=== PATIENT | female | born 1940 | race Caucasian/White ===

== ENCOUNTER 2016-09-16 21:04 | Inpatient (IN) | payer MEDICARE, OTHER ==
[~2016-09-16] VITALS: Ht 167.6 cm; Wt 49.3 kg
[~2016-09-16 21:04] MED LIST: CALAN SR240 MG PO; COLACE100 MG PO; DITROPAN X10 MG/BOTT PO; FERROUS SULFAT325 MG PO; FLORANEX / LACT1 TAB PO; LOVENOX30 MG/0.3 SQ; NIFEREX-150 F1 UDCAP PO; NORCO 5/325 TAB1 TA1 PO; RESTORIL15 MG PO; SALINE FLUSH10 ML IV; VERAPAMIL 240 MG; VITAMIN B-121000 MC3 PO
[2016-09-16 23:19] LABS: BASOPHILS 0.2 % (0.0-2.0); EOSINOPHILS 0.3 % (0-7); HEMOGLOBIN 10.6 g/dL (12-16); IMMATURE GRANULOCYTES 0.1 % (0-5); LYMPHOCYTES 10.7 % (15-50); MCH 31.2 pg (26.0-34.0); MCHC 33.1 g/dL (31.0-37.0); MCV 94.1 fL (80.0-100.0); MEAN PLATELET VOLUME 9.7 fL (7.4-10.4); MONOCYTES 12.3 % (2-11); NEUTROPHILS 76.4 % (40-80); WBC 9.6 10x3/uL (4.8-10.8)
[2016-09-16 23:23] LABS: PLATELET COUNT 221 10x3/uL (130-400)
[2016-09-16 23:27] LABS: APTT 21.5 SECONDS (22.8-39.4); INR 1.12 (0.85-1.17); PROTIME 14.3 SECONDS (11.6-15.0)
[2016-09-16 23:30] LABS: ALBUMIN 3.3 g/dL (3.4-5.0); ANION GAP 6.8 mmol/L (8-16); BILIRUBIN - TOTAL 0.4 mg/dL (0.2-1.3); CARBON DIOXIDE 36.4 mmol/L (21.0-32.0); CREATININE - SERUM 2.4 mg/dL (0.6-1.3); POTASSIUM - SERUM 3.2 mmol/L (3.5-5.1); PROTEIN - SERUM 7.4 g/dL (6.4-8.2)
[2016-09-16 23:33] LABS: CALCIUM 16.3 mg/dL (8.5-10.1)
[2016-09-17 04:00] VITALS: BP 165/70
[2016-09-17 04:23] VITALS: BP 165/70; BMI 17.8
--- NOTE | 2016-09-17 05:02 | NUR ---
PT RECEIVED VIA STRETCHER AWAKE, ALERT, ORIENTED @ 0310 A.M. BY CRESTERBRANDI TIAN. PT WAS TRANSFERRED FROM STRETCHER TO BED WITHOUT ANY DIFFICULTY. PT NEEDED TO VOID, THEREFORE TAN GARCÍA AND MYSELF ASSISTED PT TO TOILET WITH MODERATE ASSISTANCE. PT STATES SHE USES A CANE AT HOME. PT DENIES ANY NEEDS AT THIS TIME, MILD DISCOMFORT WITH AMBULATION. PT DENIES ANY ACUTE DIZZINESS OR NEAR SYNCOPAL S/S AT THIS TIME. PT WAS PLACED BACK INTO BED WITH ASSIST X 2, WHERE SHE HAS REMAINED. PT IS RESTING COMFORTABLY AT THIS TIME, RESPIRATIONS EVEN AND UNLABORED. CONTINUE TO MONITOR CLOSELY. CALL LIGHT WAS GIVEN TO PT WITH DEMONSTRATION AND DISCUSSION ON HOW AND WHEN TO USE IT. PT AGREED THAT SHE WOULD ALWAYS CALL BEFORE TRYING TO AMBULATE AND ALSO WHEN SHE NEEDED ANYTHING.
--- NOTE | 2016-09-17 05:50 | NUR ---
PT AWAKE, ALERT, ORIENTED, TALKING ON HER CELL PHONE AT THIS TIME. PT DENIES ANY NEEDS. CONTINUE TO MONITOR CLOSELY.
[2016-09-17 06:38] LABS: PHOSPHOROUS 5.7 mg/dL (2.5-4.9)
[2016-09-17 06:40] LABS: MAGNESIUM - SERUM 3.8 mg/dL (1.8-2.4)
--- NOTE | 2016-09-17 08:33 | NUR ---
PT IS ALERT. ASSESSMENT DONE PER FLOWSHEET. NO CO PAIN AT THIS TIME. WILL CONTINUE TO MONITOR.
[2016-09-17 08:34] VITALS: BP 138/66
[2016-09-17 11:00] VITALS: BP 150/61
[2016-09-17 11:02] VITALS: Ht 167.6 cm; Wt 49.3 kg
--- NOTE | 2016-09-17 13:24 | NUR ---
NO SS OF DISTRESS AT THIS TIME. WILL CONTINUE TO MONITOR.
[2016-09-17 16:39] VITALS: BP 175/74
--- NOTE | 2016-09-17 16:40 | NUR ---
PT IS WEARING SCD'S AT THIS TIME AND VERBALIZES UNDERSTANDING THE IMPORTANCE OF WEARING THEM
--- NOTE | 2016-09-17 19:35 | NUR ---
PT. IN BED WITH HOB UP FOR COMFORT WITH EYES CLOSED AND RESP. EVEN. PT. AWAKENS EASY FOR ASSESSMENT. ASSESSMENT COMPLETED. I.V. INFUSING VIA LT. A.C. AT 125/HR VIA PUMP WITHOUT ANY PROBLEMS. O2 ON AT 2L/MIN WITHOUT ANY DISTRESS. CALL LIGHT WITHIN REACH FOR ANY NEEDS.
[2016-09-17 20:00] VITALS: BP 174/68
--- NOTE | 2016-09-17 23:55 | NUR ---
PT. IN BED WITH HOB UP FOR COMFORT WITH EYES CLOSED AND RESP. EVEN. IV INFUSING VIA PUMP WITHOUT ANY ALARMS. CALL LIGHT WITHIN REACH.
[2016-09-18] VITALS: BP 187/80
[2016-09-18 04:00] VITALS: BP 182/72
--- NOTE | 2016-09-18 04:04 | NUR ---
PT. IN BED WITH HOB UP FOR COMFORT LYING ON HER BACK WITH EYES CLOSED AND RESP. EVEN. CALL LIGHT WITHIN REACH.
[2016-09-18 06:10] LABS: BASOPHILS 0.2 % (0.0-2.0); EOSINOPHILS 2.9 % (0-7); HEMATOCRIT 29.6 % (36.0-48.0); HEMOGLOBIN 9.7 g/dL (12-16); IMMATURE GRANULOCYTES 0.2 % (0-5); LYMPHOCYTES 13.6 % (15-50); MCH 31.4 pg (26.0-34.0); MCHC 32.8 g/dL (31.0-37.0); MCV 95.8 fL (80.0-100.0); MEAN PLATELET VOLUME 10.3 fL (7.4-10.4); MONOCYTES 8.8 % (2-11); NEUTROPHILS 74.3 % (40-80); PLATELET COUNT 233 10x3/uL (130-400); RBC 3.09 10x6/uL (4.00-5.40); RDW 12.1 % (11.5-14.5); WBC 10.2 10x3/uL (4.8-10.8)
[2016-09-18 06:32] LABS: CARBON DIOXIDE 33.1 mmol/L (21.0-32.0); CREATININE - SERUM 2.3 mg/dL (0.6-1.3)
[2016-09-18 07:21] LABS: CALCIUM 13.9 mg/dL (8.5-10.1); POTASSIUM - SERUM 4.1 mmol/L (3.5-5.1)
[2016-09-18 08:31] VITALS: BP 182/92
--- NOTE | 2016-09-18 10:34 | NUR ---
UPSET AND WANTING TO LEAVE. HAS DRESSED HERSELF, PULLED HER IV OUT, PULLED TELEMETRY OFF AND CALLER HER FRIEND. BRANDI UP SPOKE WITH PT AND SHE HAS SETTELED DOWN SOME AND IS NO LONGER CONSTANTLY TURNER MACHINE LIGHT INSISTING SHE GO HOME.
[2016-09-18 12:10] VITALS: BP 181/85
--- NOTE | 2016-09-18 12:36 | NUR ---
SITTING QUIETLY IN BED EATING LUNCH. AND CAROL NOTIFIED OF PT REQUEST TO TALK TO HER.
--- NOTE | 2016-09-18 15:26 | NUR ---
Patient Name: MERVIN DUBON Admission Status: ER Accout number: [id number] Admission Date: 09-17-2016 : 1940 Admission Diagnosis:HYPERCALCEMIA Attending: UBALDO Current LOS: 1 Anticipated DC Date: Planned Disposition: Home with Home Health Primary Insurance: MEDICARE A & B PLANNED EXTERNAL PROVIDER: [facility] Discharge Planning Comments: * Is the patient Alert and Oriented? Yes 0 * How many steps to enter\\exit or inside your home? 2 0 * PCP DR. BERGERON 0 * Pharmacy [facility] 0 * Preadmission Environment Home Alone 0 * ADLs Independent 0 * Equipment Cane Other Walker 0 * Other Equipment WALK IN [facility]UB [facility] - MEDICAL EQUIPMENT PROVIDER 0 * List name and contact numbers for known caregivers / representatives who currently or will assist patient after discharge: LALITO KAPOOR, FRIEND, 0 * Community resources currently utilized None 0 * Please name any agencies selected above. NONE 0 * Additional services required to return to the preadmission environment? No 0 * Can the patient safely return to the preadmission environment? Yes 0 * Has this patient been hospitalized within the prior 30 days at any hospital? No 0 CM MET WITH PT IN ROOM TO DISCUSS DISCHARGE PLANNING AND NEEDS. PT REPORTS LIVING AT HOME INDEPENDENTLY AND ALONE, HER SPOUSE RECENTLY WENT TO THE [facility]". PT HAS WALKER AND A CANE, [employer] IS HER MEDICAL EQUIPMENT PROVIDER. PT HAS NO OUTSIDE SERVICES ASSISTING IN THE HOME. CM DISCUSSED AVAILABILITY OF HOME HEALTH, REHAB SERVICES AND MEDICAL EQUIPMENT. PT REPORTS THE DOCTOR IS GOING TO SET UP HOME HEALTH FOR HER AND IF SO, SHE WANTS [facility]. CM OFFERED CHOICE LETTER, PT REFUSED TO SIGN AND STATES SHE WILL TAKE CARE OF THIS LATER WHEN THE DOCTOR DETERMINES WHAT SHE NEEDS. PT REPORTS HER FRIEND WILL PICK HER UP FOR DISCHARGE HOME. PT WANTS HOME HEALTH WITH [facility], DID NOT WANT TO SIGN CHOICE LETTER UNTIL THE DOCTOR DETERMINES WHAT SHE NEEDS. CM WILL ARRANGE HOME HEALTH IF NEEDED AND WITH DOCTORS ORDER. Corporate Travel Consultant: Kareem Aguiar
[2016-09-18 16:00] VITALS: BP 179/84
--- NOTE | 2016-09-18 18:37 | NUR ---
RESTING COMFORTABLE IN BED WATCHING TV.
[2016-09-18 20:49] VITALS: BP 194/79
--- NOTE | 2016-09-18 21:10 | NUR ---
PT ASSESSMENT COMPLETED NO DISTRESS OBSERVED AT THIS TIME BED LOW AND LOCKED RESPERATIONS EVEN AND UNLABORED ON ROOM AIR WILL LEIGH ANN
[2016-09-19] VITALS (17 sets, daily range): BP systolic 140–241; BP diastolic 71–121
--- NOTE | 2016-09-19 00:52 | NUR ---
PT FOUND ON FLOOR SITTING UP WITH WALKER TO SIDE PT ASSISTED TO BED AND ASSESSED NO INJURY OBSERVED PT SETTLED IN BED AND CALL LIGHT IN REACH SRX2. PT RETIREMENT ADMINISTRATOR LIGHT AND ANSWERED AND PT C/O HIP BEING DISLOCATED DR CALDERON IN ER CALLED AND XRAY ORDERED AND PT INFORMED PT MADE COMFTERABLE AND [facility] NOTIFIED. REVIEWED MAR AND NO PAIN MEDS ORDERED. WATING FOR RESULTS OF XRAY
--- NOTE | 2016-09-19 01:53 | NUR ---
XRAY RESULTS BACK AND FINDINGS SHOW LEFT HIP DISLOCATION DR CALDERON ORDER FOR ORTHO
--- NOTE | 2016-09-19 02:50 | NUR ---
PT C/O PAIN NO PAIN MEDS ORDERED DR CALDERON CALLED AND RECIVED ORDER FOR MORPHINE 2MG IVP Q2HP FOR PAIN ADMIN TO PT ORDERED AND WILL MONITOR
--- NOTE | 2016-09-19 03:54 | NUR ---
PT LAYING IN BED EYES CLOSED PT APPERS TO BE SLEEPING WILL MONITOR
--- NOTE | 2016-09-19 04:52 | NUR ---
PT LAYING IN BED PAIN MEDS ADMIN ORDERED PT CALLING OUT FOR QUYNH RESPERATIONS EVEN AND UNLABORED CALL LIGHT IN REACH SRX2 BED LOW AND LOCKED WILL MONITOR
[2016-09-19 07:41] LABS: BASOPHILS 0.1 % (0.0-2.0); EOSINOPHILS 2.6 % (0-7); HEMATOCRIT 24.8 % (36.0-48.0); HEMOGLOBIN 8.1 g/dL (12-16); IMMATURE GRANULOCYTES 0.2 % (0-5); LYMPHOCYTES 19.8 % (15-50); MCH 31.2 pg (26.0-34.0); MCHC 32.7 g/dL (31.0-37.0); MCV 95.4 fL (80.0-100.0); MONOCYTES 10.3 % (2-11); PLATELET COUNT 197 10x3/uL (130-400); WBC 9.2 10x3/uL (4.8-10.8)
--- NOTE | 2016-09-19 08:00 | NUR ---
PATIENT LYING IN BED RESTING. ALERT/ORIENT X4. CALL LIGHT WITHIN REACH.
[2016-09-19 08:15] LABS: ANION GAP 9.1 mmol/L (8-16); CARBON DIOXIDE 30.9 mmol/L (21.0-32.0); CREATININE - SERUM 2.2 mg/dL (0.6-1.3)
--- NOTE | 2016-09-19 09:49 | NUR ---
IV PATENT. CALL LIGHT IN REACH. WILL CONT. PLAN OF CARE.
--- NOTE | 2016-09-19 09:54 | NUR ---
DR. WITT INTO SEE PATIENT. NEW ORDERS FOR TWO UNITS OF PRBC. CONSULT IN FOR DR. NAPIER/EDGARDO DUE TO FALL AND C/O OF HIP PAIN
--- NOTE | 2016-09-19 10:00 | NUR ---
PATIENT SIGNED CONSENT FORM FOR TWO UNITS OF PRBC. FIST UNIT STARTED.
--- NOTE | 2016-09-19 11:00 | NUR ---
DR. NAPIER INTO SEE PATIENT. NEW ORDER RECEIVED FOR RIGHT TOTAL HIP REVISION ON WEDNESDAY. NEW ORDERS TO INSERT A LOPES CATH. NEW PAIN MEDICATION ORDERS
--- NOTE | 2016-09-19 11:27 | NUR ---
PRN PAIN MEDICATION GIVEN FOR LEFT HIP PAIN.
--- NOTE | 2016-09-19 13:00 | NUR ---
SECOND UNIT OF BLOOD STARTED. NO ADVERVSE REACTION FROM FIRST UNIT
--- NOTE | 2016-09-19 13:50 | NUR ---
LOPES CATH INSERTED. 16FR WITHOUT DIFFICULTY
--- NOTE | 2016-09-19 15:45 | NUR ---
SECOND UNIT OF PRBC GIVEN. TOLERATED WELL. PRN HYDRALAZINE GIVEN FOR B/P .
--- NOTE | 2016-09-19 17:43 | NUR ---
MIACALCIN NOT GIVEN DUE TO NOT AVAL FROM PHARMACY
--- NOTE | 2016-09-19 19:41 | NUR ---
PT IS LYING IN BED, SCREAMING HYSTERICALLY, DEMANDING TO BE DISCHARGED. PT STATES SHE JUST EITHER WANTS SURGERY RIGHT NOW OR SHE WANTS TO GO HOME. PT IS INCONSOLABLE AT THIS TIME. VISITORS HAVE ARRIVED, AND SHE IS STILL REQUESTING TO GO HOME. PT STATES SHE IS IN A GREAT DEAL OF PAIN, AND I HAVE ASSURED PT THAT I WILL BE DILIGENT IN ADMINISTERING HER PAIN MEDICATION AND NOT LET IT GET OUT OF CONTROL, ONCE I GET IT BACK IN CONTROL. WILL CONTINUE TO MONITOR CLOSELY. BED LOW, CALL LIGHT IN REACH, SIDE RAILS X 2, PTS HOB IS 20 DEGREES.
--- NOTE | 2016-09-19 23:35 | NUR ---
I SPOKE WITH DR. HARDING FROM OUR EMERGENCY DEPARTMENT [facility] @ 8372 R/T PTS BEHAVIOR IN WHICH SHE WAS CONSTANTLY YELLING/SCREAMING TO BE LET OUT SO SHE COULD GO HOME. I RECEIVED A VERBAL ORDER VIA TELEPHONE FROM DR. HARDING FOR ATIVAN 0.5MG IV ONE TIME DOSE, INCREASE HER PO NORCO 5/325MG FROM 1 PO Q 4 HOURS PRN TO 1-2 PO Q 4 HOURS PRN, OR TO GIVE HER PRN MORPHINE TO TRY AND GET PTS PAIN BACK UNDER CONTROL. I HAVE NOT HAD TO ADMINISTER THE PRN ATIVAN YET, PT DID CALM DOWN AN HOUR AFTER GIVING HER THE PO NORCO 5 X 1. PT ALSO DID HAVE VISITORS FROM [facility] IN THERE AT THAT TIME, WHICH DID HELP. I DID ADMINISTER THE PRN MORPHINE APPROX 2 HOURS AFTER THE PO NORCO, SHE WAS BECOMING INCONSOLABLE AND EXTREMELY RESTLESS. PT HAS BEEN RESTING COMFORTABLY, RESPIRATIONS EVEN AND UNLABORED, PT IS ROUSABLE TO VERBAL STIMULI. CONTINUE TO MONITOR CLOSELY. BED LOW, CALL LIGHT IN REACH, SIDE RAILS X 2, HOB 30 DEGREES.
[2016-09-20 00:23] VITALS: BP 152/76
--- NOTE | 2016-09-20 01:03 | NUR ---
CHANGED OUT IV BAG, PT RESTING COMFORTABLY AT THIS TIME, EASILY ROUSABLE TO VERBAL STIMULI, DENIES ANY NEEDS. CONTINUE TO MONITOR CLOSELY.
--- NOTE | 2016-09-20 01:54 | NUR ---
PT AWAKE, ALERT, STILL WANTING TO GET UP OUT OF BED, STILL WANTING TO GO HOME. HAVE HAD TO REMIND PT THAT SHE IS UNABLE TO WALK AT THIS TIME R/T HER LEFT HIP, AND THAT SHE NEEDS REST AT THIS TIME. PT IS MORE CONSOLABLE AT THIS TIME, AND DENIES ANY GREAT PAIN. CONTINUE TO MONITOR CLOSELY.
--- NOTE | 2016-09-20 04:07 | NUR ---
PT LYING IN BED, EYES CLOSED, RESPIRATIONS EVEN AND UNLABORED. PT IS EASILY ROUSABLE TO VERBAL STIMULI. PT APPEARS TO BE COMFORTABLE AT THIS TIME. CONTINUE TO MONITOR CLOSELY. BED LOW, CALL LIGHT IN REACH, SIDE RAILS X 2, HOB 25 DEGREES, BED ALARM ON.
[2016-09-20 04:20] VITALS: BP 157/87
[2016-09-20 05:06] LABS: BASOPHILS 0.2 % (0.0-2.0); EOSINOPHILS 3.5 % (0-7); IMMATURE GRANULOCYTES 0.3 % (0-5); LYMPHOCYTES 11.2 % (15-50); MCH 31.1 pg (26.0-34.0); MCHC 33.6 g/dL (31.0-37.0); NEUTROPHILS 74.8 % (40-80); PLATELET COUNT 210 10x3/uL (130-400); RDW 13.8 % (11.5-14.5); WBC 10.5 10x3/uL (4.8-10.8)
[2016-09-20 05:16] LABS: HEMATOCRIT 35.7 % (36.0-48.0); MCV 92.5 fL (80.0-100.0); RBC 3.86 10x6/uL (4.00-5.40)
--- NOTE | 2016-09-20 05:26 | NUR ---
PT DEMONSTRATED DIFFICULTY SWALLOWING WHOLE PILLS THIS SHIFT, SO I CRUSHED HER PRN NORCO AND PROTONIX AND GAVE WITH APPLESAUCE. PT DID EAT THE WHOLE CONTAINER OF APPLE SAUCE WITHOUT ANY DIFFICULTY. PT ALSO SHARED WITH ME THAT SHE IS AFRAID OF DYING, WHICH IS CONTRIBUTING TO HER INCREASED ANXIETY. PT ALSO STATED SHE IS AFRAID OF LOSING HER INDEPENDENCE AND WILL NOT BE ABLE TO GO HOME AFTER THIS. I ASSURED HER THAT WE WOULD DO ALL THAT IS NECCESSARY TO ENSURE HER INDEPENDENCE. CONTINUE TO MONITOR CLOSELY.
[2016-09-20 05:53] LABS: ANION GAP 12.2 mmol/L (8-16); CALCIUM 10.6 mg/dL (8.5-10.1); CARBON DIOXIDE 29.5 mmol/L (21.0-32.0); CREATININE - SERUM 1.9 mg/dL (0.6-1.3); POTASSIUM - SERUM 3.7 mmol/L (3.5-5.1)
[2016-09-20 08:00] VITALS: BP 179/87
[2016-09-20 12:00] VITALS: BP 148/69
[2016-09-20 16:00] VITALS: BP 172/74
--- NOTE | 2016-09-20 16:53 | NUR ---
CONSENTS FOR HIP REPLACEMENT SIGNED ON CHART. RESTING COMFORTABLY IN BED. CONTINUE PAIN MANAGEMENT. SINUS RHTYHM 94bpm ON TELEMETRY. REFUSE SCDs. LOPES DRAINING BY GRAVITY FREE FROM KINKS. CONTINUE PLAN OF CARE. DENIES SOB. BED LOCKED AND LOW. CALL LIGHT IN REACH. TWO SIDERAILS UP. BED ALARM ON.
--- NOTE | 2016-09-20 19:32 | NUR ---
PT LYING IN BED, AWAKE, ALERT, ORIENTED, DENIES ANY NEEDS. PT IS CALM, SMILING, DENIES ANY PAIN AT THIS TIME, AND HAS RESTED WELL TODAY PER DAY SHIFT NURSE. CONTINUE TO MONITOR CLOSELY. BED LOW, CALL LIGHT IN REACH, SIDE RAILS X 2, HOB 30 DEGREES, BED ALARM ON. SHE HAS PENTECOSTALISM VISITORS AT BEDSIDE AT THIS TIME.
[2016-09-20 20:00] VITALS: BP 174/81
--- NOTE | 2016-09-20 20:26 | NUR ---
PTS B/P AT THIS TIME IS 174/81. WILL ADMINISTER HER PRN HYDRALAZINE 10MG IVP. PT IS ALSO REQUESTING SOMETHING TO HELP HER SLEEP, WANTING HER MORPHINE. WILL CONTINUE TO MONITOR CLOSELY. PT DID NOT AND REFUSED TO EAT HER DINNER TRAY, DENIES ANY HUNGER OR WANTING ANYTHING TO EAT AT THIS TIME. WILL ENCOURAGE APPLESAUCE, PUDDING, ETC... TO HELP HER WITH CALORIC INTAKE.
--- NOTE | 2016-09-20 23:06 | NUR ---
PT RESTING COMFORTABLY, EYES CLOSED, RESPIRATIONS EVEN AND UNLABORED. PT IS ROUSABLE TO VERBAL STIMULI. CONTINUE TO MONITOR CLOSELY. WILL AGAIN TRY TO HAVE PT EAT SOMETHING SMALL BEFORE GOING NPO AT MIDNIGHT.
[2016-09-21] VITALS (7 sets, daily range): BP systolic 129–152; BP diastolic 70–77
--- NOTE | 2016-09-21 02:45 | NUR ---
PT LYING IN BED ON BACK, EYES CLOSED, RESPIRATIONS EVEN AND UNLABORED. PT IS EASILY ROUSABLE TO VERBAL STIMULI. CONTINUE TO MONITOR CLOSELY.
--- NOTE | 2016-09-21 04:52 | NUR ---
PT AWAKE, ALERT, ORIENTED, REQUESTING SWAB STICKS FOR DRY MOUTH AND PRN PAIN MEDICATION. LEMON GLYCERIN SWAB STICKS GIVEN, AND I DID SWAB PTS MOUTH SEVERAL TIMES. PRN MORPHINE GIVEN, PT IS ANXIOUS ABOUT UPCOMING SURGERY. HAVE REASSURED HER THAT THE PHYSICIANS WILL KEEP HER SAFE. CONTINUE TO MONITOR CLOSELY.
[2016-09-21 05:36] LABS: BASOPHILS 0.2 % (0.0-2.0); EOSINOPHILS 1.7 % (0-7); HEMATOCRIT 35.7 % (36.0-48.0); HEMOGLOBIN 11.7 g/dL (12-16); IMMATURE GRANULOCYTES 0.2 % (0-5); LYMPHOCYTES 9.5 % (15-50); MCH 30.5 pg (26.0-34.0); MCHC 32.8 g/dL (31.0-37.0); MCV 93.2 fL (80.0-100.0); MONOCYTES 11.1 % (2-11); NEUTROPHILS 77.3 % (40-80); PLATELET COUNT 229 10x3/uL (130-400); RBC 3.83 10x6/uL (4.00-5.40); RDW 13.5 % (11.5-14.5); WBC 12.7 10x3/uL (4.8-10.8)
[2016-09-21 05:50] LABS: CALCIUM 9.4 mg/dL (8.5-10.1); CARBON DIOXIDE 31.7 mmol/L (21.0-32.0); CREATININE - SERUM 1.7 mg/dL (0.6-1.3); POTASSIUM - SERUM 3.7 mmol/L (3.5-5.1)
--- NOTE | 2016-09-21 18:32 | NUR ---
ALERT AND ORIENTED X4. FAMILY AT BEDSIDE. PRE-OP COMPLETE. TRANSPORT TO OR VIA BED.
--- NOTE | 2016-09-21 20:55 | NUR ---
RECEIVED PATIENT TO ROOM. RESTING IN BED WITH EYES CLOSED. AROUSES TO VOICE. NO SIGNS OF DISTRESS NOTED. VSS. ORIENTED TO ROOM AND USE OF CALL LIGHT.
[2016-09-22 06:57] LABS: BASOPHILS 0.1 % (0.0-2.0); EOSINOPHILS 0 % (0-7); HEMATOCRIT 28.9 % (36.0-48.0); HEMOGLOBIN 9.5 g/dL (12-16); IMMATURE GRANULOCYTES 0.2 % (0-5); LYMPHOCYTES 7.5 % (15-50); MCH 30.7 pg (26.0-34.0); MCHC 32.9 g/dL (31.0-37.0); MCV 93.5 fL (80.0-100.0); MEAN PLATELET VOLUME 9.7 fL (7.4-10.4); MONOCYTES 7.1 % (2-11); NEUTROPHILS 85.1 % (40-80); RBC 3.09 10x6/uL (4.00-5.40); RDW 12.9 % (11.5-14.5); WBC 10.8 10x3/uL (4.8-10.8)
[2016-09-22 07:02] LABS: PLATELET COUNT 169 10x3/uL (130-400)
[2016-09-22 07:18] LABS: ANION GAP 11.5 mmol/L (8-16); CARBON DIOXIDE 26.9 mmol/L (21.0-32.0); CREATININE - SERUM 1.5 mg/dL (0.6-1.3); POTASSIUM - SERUM 3.4 mmol/L (3.5-5.1)
[2016-09-22 08:09] VITALS: BP 135/68
--- NOTE | 2016-09-22 08:21 | NUR ---
AWAKE AND ALERT. ORIENTED X3. NO C/O AT THIS TIME. SITTING UP IN BED EATING BREAKFAST. LUNGS ARE CLEAR BILATERALLY, NO COUGH NOTED. SKIN IS INTACT WITHOUT REDNESS EXCEPT INSCION TO LEFT HIP WHICH HAS A DRY INTACT DRESSING IN PLACE. IV TO RIGHT FOREARM IS PATENT WITHOUT REDNESS AT INSERTION SITE. LOPES PATENT WITH CLEAR YELLOW URINE. DENIES NEEDS AT THIS TIME.
--- NOTE | 2016-09-22 09:30 | NUR ---
UP TO CHIAR AT BEDSIDE PER PT.
--- NOTE | 2016-09-22 10:00 | NUR ---
ASSISTED BACK TO BED PER PT.
--- NOTE | 2016-09-22 11:04 | NUR ---
FAMILY AT BEDSIDE. INSTRUCTED IN USE OF IS WITH RETURN DEMONSTRATION.
[2016-09-22 11:44] VITALS: BP 140/61
--- NOTE | 2016-09-22 14:11 | NUR ---
Rehab Note- Rehab Prescreen Eval order received. The patient has had a BERRY, awaiting abduction brace from Jack. Will plan for IRF when patient is ready for discharge. Will follow patient at this time. Thank you for this referral! Marissa Lawrence RN Clinical Liaison, [facility]
[2016-09-22 15:55] VITALS: BP 139/67
--- NOTE | 2016-09-22 19:45 | NUR ---
PATIENT IN SEMI-FOWLERS POSTION. PATIENT DENIES NEEDS AT THIS TIME. PATIENT'S BED IS IN THE LOWEST POSTION AND CALL LIGHT WITHIN REACH.
[2016-09-22 21:14] VITALS: BP 147/67
[2016-09-23 04:00] VITALS: BP 133/57
[2016-09-23 05:27] LABS: BASOPHILS 0.1 % (0.0-2.0); EOSINOPHILS 0.7 % (0-7); HEMATOCRIT 25.2 % (36.0-48.0); HEMOGLOBIN 8.5 g/dL (12-16); IMMATURE GRANULOCYTES 0.1 % (0-5); LYMPHOCYTES 13.4 % (15-50); MCH 30.8 pg (26.0-34.0); MCHC 33.7 g/dL (31.0-37.0); MEAN PLATELET VOLUME 9.4 fL (7.4-10.4); MONOCYTES 12.5 % (2-11); NEUTROPHILS 73.2 % (40-80); PLATELET COUNT 177 10x3/uL (130-400); RBC 2.76 10x6/uL (4.00-5.40); RDW 12.5 % (11.5-14.5); WBC 9.8 10x3/uL (4.8-10.8)
[2016-09-23 05:42] LABS: MCV 91.3 fL (80.0-100.0)
[2016-09-23 05:49] LABS: ALBUMIN 2.4 g/dL (3.4-5.0); ANION GAP 11.5 mmol/L (8-16); BILIRUBIN - TOTAL 0.3 mg/dL (0.2-1.3); CALCIUM 7.7 mg/dL (8.5-10.1); CARBON DIOXIDE 27.4 mmol/L (21.0-32.0); CREATININE - SERUM 1.4 mg/dL (0.6-1.3); PROTEIN - SERUM 5.3 g/dL (6.4-8.2)
[2016-09-23 05:58] LABS: POTASSIUM - SERUM 2.9 mmol/L (3.5-5.1)
--- NOTE | 2016-09-23 07:00 | NUR ---
REPORT RECIEVED ASSUMED CARE. PATIENT IN BED WITH IV INTACT. NO COMPLAINTS AT THIS TIME. CALL LIGHT WITHIN REACH.
[2016-09-23 07:58] VITALS: BP 133/67
--- NOTE | 2016-09-23 11:00 | NUR ---
PATIENT UP TO CHAIR AT THIS TIME. NO COMPLAINTS. FAMILY AT BEDSIDE. CALL LIGHT WITHIN REACH.
[2016-09-23 11:21] LABS: MAGNESIUM - SERUM 1.3 mg/dL (1.8-2.4); PHOSPHOROUS 2.9 mg/dL (2.5-4.9)
--- NOTE | 2016-09-23 12:40 | NUR ---
NUTRITION MONITORING & EVAL CHART REVIEWED, PT VISIT. UP IN CHAIR. PT TOLERATING REG DIET WITH ENSURE. SNACKS @ BEDSIDE. RD FOLLOWING
[2016-09-23 12:41] VITALS: BP 122/59
[2016-09-23 15:53] VITALS: BP 162/79
--- NOTE | 2016-09-23 16:21 | NUR ---
PATIENT SITTING UP IN BED WITH IV INTACT. AMILCAR BRACE EMPLOYEE IN TRYING TO READJUST PATIENTS BRACE. PATIENT IN BED WITH NO COMPLAINTS AT THIS TIME. CALL LIGHT WITHIN REACH.
[2016-09-23 20:00] VITALS: BP 131/54
--- NOTE | 2016-09-23 20:00 | NUR ---
ASSESSMENT PER FLOWSHEET. IV PATENT RT FOREARM OF NS W/20MEQ KCL INFUSING AT 125CC'S/HR SITE CLEAR. DRSG TO LEFT HIP C/D/I. BRACE TO HIP. LOPES TO BS DRAINAGE WITH YELLOW URINE. PT IS ALERT TO PERSON AND PLACE NOT TIME OR SURROUNDINGS. BED ALARM BED ON SCD'S ON.SR UP X3 CALL LIGHT WITHIN REACH.
--- NOTE | 2016-09-23 21:30 | NUR ---
MEDS GIVEN PER OCT. REPOSITIONED IN BED.
[2016-09-24] VITALS (15 sets, daily range): BP systolic 123–154; BP diastolic 46–78
--- NOTE | 2016-09-24 | NUR ---
EYES CLOSED RESPIRATIONS WITH EASE AND UNLABORED.
--- NOTE | 2016-09-24 01:20 | NUR ---
PT TRYING TO GET OUT OF BED. STATES LEFT LEG HURTS. NORCO TAB ONE PO GIVEN FOR PAIN CONTROL. REPOSITIONED IN BED. TELM. SHOWS SR WITH HR 87-88.K+ READING SHOWED 3.7 NO COVERAGE NEEDED.
--- NOTE | 2016-09-24 05:31 | NUR ---
AWAKE MEDS GIVEN PER MAR. REPOSITIONED IN BED SR UP X3 CALL LIGHT WITHIN REACH.
[2016-09-24 05:35] LABS: BASOPHILS 0.1 % (0.0-2.0); EOSINOPHILS 1.5 % (0-7); HEMATOCRIT 23.3 % (36.0-48.0); HEMOGLOBIN 7.8 g/dL (12-16); IMMATURE GRANULOCYTES 0.1 % (0-5); LYMPHOCYTES 15.7 % (15-50); MCH 31.1 pg (26.0-34.0); MCHC 33.5 g/dL (31.0-37.0); MCV 92.8 fL (80.0-100.0); MONOCYTES 14.5 % (2-11); NEUTROPHILS 68.1 % (40-80); PLATELET COUNT 173 10x3/uL (130-400); RBC 2.51 10x6/uL (4.00-5.40); RDW 12.8 % (11.5-14.5); WBC 7.6 10x3/uL (4.8-10.8)
[2016-09-24 06:06] LABS: ALBUMIN 2.2 g/dL (3.4-5.0); ANION GAP 9.5 mmol/L (8-16); BILIRUBIN - TOTAL 0.35 mg/dL (0.2-1.3); CARBON DIOXIDE 29.8 mmol/L (21.0-32.0); CREATININE - SERUM 1.1 mg/dL (0.6-1.3); POTASSIUM - SERUM 3.3 mmol/L (3.5-5.1); PROTEIN - SERUM 5.6 g/dL (6.4-8.2)
--- NOTE | 2016-09-24 07:00 | NUR ---
REPORT RECIEVED ASSUMED CARE. PATIENT IN BED WITH IV INTACT. NO COMPLAINTS AT THIS TIME. CALL LIGHT WITHIN REACH.
--- NOTE | 2016-09-24 08:45 | NUR ---
ASSESSMENT COMPLETE, VS STABLE. NO COMPLAINTS AT THIS TIME. DRESSING TO LEFT HIP CLEAN AND DRY. BRACE ON AT THIS TIME. REFUSES ABDUCTOR PILLOW. IV INTACT. CALL LIGHT WITHIN REACH.
--- NOTE | 2016-09-24 12:15 | NUR ---
NOTIFIED RICARDO CARPENTER OF PATIENT STICKING HER FINGER DOWN HER THROAT TO THROW UP AFTER EATING. NO NEW ORDERS AT THIS TIME. CALL LIGHT WITHIN REACH.
--- NOTE | 2016-09-24 12:40 | NUR ---
NUTRITION MONITORING & EVAL CHART REVIEWED, PT VISIT. NURSING REPORTS PT WITH SELF INDUCED VOMITING AFTER MEALS. PT ADMITED TO NURSING DOING SAME WHEN AT HOME. NOW ASSESSED WITH SEVERE MALNUTRITION OF CHRONIC ILLNESS AEB 1)=/< 75% INTAKE EST ENERGY NEEDS =/> 1 MONTH 2)OBSERVED SUBCUTANEOUS FAT/MUSCLE LOSS(SEVERE) 3)WT LOSS > 5% IN ONE MONTH RD FOLLOWING
--- NOTE | 2016-09-24 13:38 | NUR ---
Visited with the patient this morning at length regarding acute rehab vs a SNF rehab. She lives in [facility] and has been to [facility] before. She wants to see if they have a bed for her there, as she is familiar with the staff. Spoke to the CM Natalie Ash re our conversation. If she changes her mind or is unable to go to [facility] for rehab she will be accepted to the inpatient rehab at [facility]. The patient and the CM have been made aware and agree with this plan. Jeri Sweeney RN Clinical Liaison, Rehab
--- NOTE | 2016-09-24 15:00 | NUR ---
FIRST UNIT OF BLOOD STARTED AT THIS TIME. IV INTACT. VS STABLE. NO COMPLAINTS. FRIEND AT BEDSIDE. CALL LIGHT WITHIN REACH.
--- NOTE | 2016-09-24 16:00 | NUR ---
BLOOD TRANFUSING AT THIS TIME. IV INTACT. NO COMPLAINTS. VS STABLE. CALL IGHT WITHIN REACH.
--- NOTE | 2016-09-24 16:35 | NUR ---
CM REASSESSMENT NOTE: REFERRAL HAS BEEN SENT TO [facility] PER PATIENT REQUEST FOR [facility]. CLARISSE AT [facility] WILL NOTIFY CM WHEN DECISION MADE.
[2016-09-24 16:45] LABS: ERYTHROCYTE SEDIMENTATION RATE 65 mm/hr (0-30)
--- NOTE | 2016-09-24 17:45 | NUR ---
SECOND UNIT OF BLOOD STARTED AT THIS TIME. IV INTACT. VS STABLE. NO COMPLAINTS. FRIENDS AT BEDSIDE. CALL LIGHT WITHIN REACH.
--- NOTE | 2016-09-24 18:45 | NUR ---
PATIENT SITTING UP IN BED WITH NO COMPLAINTS. IV INTACT. VS STABLE. SECOND UNIT OF BLOOD INFUSING. CALL LIGHT WITHIN REACH.
--- NOTE | 2016-09-24 20:00 | NUR ---
PT WATCHING TV, DENIES ANY NEEDS AT THIS TIME. BED IN LOWEST POSITION,CALL LIGHT IN REACH, ASSESSMENT PER FLOWSHEET.
[2016-09-25] VITALS: BP 133/61
--- NOTE | 2016-09-25 00:48 | NUR ---
PT IS ALEEP WITH EASY RESTPIRATIONS AND NO NO DISTRESS NOTED. HOB IS UP 30% WITH O2 O2 BEING USED AND THE O2 SAT MOMITOR SHOWS 97%. LOPES SHOWS CLEAR YELLOW URINE. THE BED IS LOW, RAILS UP X'S 2 WITH THE CALL LIGHT AT HAND.
--- NOTE | 2016-09-25 03:32 | NUR ---
PT RESTING QUIETLY WITH EYES CLOSED, BREATHING EVEN AND UNLABORED ON ROOM AIR, CALL LIGHT IN REACH, BED IN LOWEST POSITION. WILL CONINTUE TO MONITOR.
[2016-09-25 04:00] VITALS: BP 130/53
[2016-09-25 05:18] LABS: BASOPHILS 0.2 % (0.0-2.0); EOSINOPHILS 5.3 % (0-7); HEMATOCRIT 31.2 % (36.0-48.0); HEMOGLOBIN 10.3 g/dL (12-16); IMMATURE GRANULOCYTES 0.5 % (0-5); LYMPHOCYTES 15.6 % (15-50); MCH 29.9 pg (26.0-34.0); MCV 90.4 fL (80.0-100.0); MEAN PLATELET VOLUME 10.3 fL (7.4-10.4); MONOCYTES 14.1 % (2-11); NEUTROPHILS 64.3 % (40-80); PLATELET COUNT 163 10x3/uL (130-400); RBC 3.45 10x6/uL (4.00-5.40); RDW 15.1 % (11.5-14.5); WBC 6.6 10x3/uL (4.8-10.8)
--- NOTE | 2016-09-25 05:46 | NUR ---
PT CALLED ME TO ROOM C/O "MY BLADDER FEELS LIKE IT'S FULL AND I NEED TO PEE BUT I KNOW I HAVE THE CATHERTER IN." I ASPERATED CATH BULB TO CHECK FOR PLACEMENT AND GOT 14CC NS RETURN. I REINFLATED BULB AND CHECKED POSITION. SOME URINE NOTED IN FOLY TUBE BUT PT STILL REPORTED "FULLNESS" IN HER BLADDER. PT WAS THEN REPOSITIONED IN THE BED AND HOB RAISED TO 45 DEGREES. 150ML OF URINE EMPTIED INTO THE LOPES BAG. PT REPORTED RELIEF.
[2016-09-25 05:50] LABS: ALBUMIN 2.2 g/dL (3.4-5.0); ANION GAP 8.8 mmol/L (8-16); BILIRUBIN - TOTAL 0.53 mg/dL (0.2-1.3); CALCIUM 8.2 mg/dL (8.5-10.1); CARBON DIOXIDE 29.7 mmol/L (21.0-32.0); MAGNESIUM - SERUM 1.4 mg/dL (1.8-2.4); POTASSIUM - SERUM 4.5 mmol/L (3.5-5.1); PROTEIN - SERUM 5.6 g/dL (6.4-8.2)
[2016-09-25 05:51] LABS: PHOSPHOROUS 1.9 mg/dL (2.5-4.9)
--- NOTE | 2016-09-25 07:30 | NUR ---
SLEEPING QUIETLY AT PRESENT RESP EVEN AND UNLABORED AT PRESENT IV CONT AT 50CC/HR /RT FA SITE CLEAN AND DRY WITHOUT REDDNESS OR EDEMA.
[2016-09-25 07:51] VITALS: BP 144/68
--- NOTE | 2016-09-25 09:00 | NUR ---
MEDS GIVEN MAYA WELL AT PRESENT.
--- NOTE | 2016-09-25 10:00 | NUR ---
RESP EVEN AND UNLABORED AT PRESENT N/C VOICED.
--- NOTE | 2016-09-25 12:00 | NUR ---
CONT UP IN CHAIR AT PRESENT LOPES CATH IN TACT AND DRAINING YELLOW URINE AT PRESENT.
[2016-09-25 12:29] VITALS: BP 149/62
--- NOTE | 2016-09-25 14:00 | NUR ---
UP INCHAIR AT PRESENT PER PT DSG INTACT TO LEFT HIP ABDUCTION PILLOW IN PLACE AT PRESENT.
--- NOTE | 2016-09-25 16:00 | NUR ---
AWAKE ALERT AT PRESENT DENIES ANY NEEDS IV CONT TO RTFA SITE CLEAN AND DRY WITHOUT REDDNESS OR EDEMA.
[2016-09-25 16:37] VITALS: BP 146/72; BP 146/84
--- NOTE | 2016-09-25 18:34 | NUR ---
QUIET IN ROOM AT PRESENT SON AT VOMITED UP AT OLD FOOD AT PRESENT.
[2016-09-25 19:00] VITALS: BP 143/71
--- NOTE | 2016-09-25 19:30 | NUR ---
PT SITTING UP IN BED WATCHING TV, BREATHING EVEN AND UNLABORED ON ROOM AIR. PT DENIES ANY PAIN OR NEEDS AT THIS TIME. BED IN LOWEST POSITION,CALL LIGHT IN REACH, ASSESSMENT PER FLOWSHEET. WILL CONTINUE TO MONITOR.
--- NOTE | 2016-09-26 01:06 | NUR ---
PT RESTING QUIETLY WITH EYES CLOSED, BREATHING EVEN AND UNLABORED ON ROOM AIR. BED IN LOWEST POSITION, CALL LIGHT IN REACH. WILL CONTINUE TO MONITOR.
[2016-09-26 04:00] VITALS: BP 136/58
--- NOTE | 2016-09-26 04:08 | NUR ---
PATIENT SLEEPING IN SEMI-FOWLERS POSITION. NO VISIBLE SIGNS OF DISTRESS. PATIENT'S BED IS IN THE LOWEST POSITION AND CALL LIGHT IS WITHIN REACH.
[2016-09-26 06:06] LABS: BASOPHILS 0.2 % (0.0-2.0); EOSINOPHILS 3.8 % (0-7); HEMOGLOBIN 10.9 g/dL (12-16); IMMATURE GRANULOCYTES 0.2 % (0-5); MCH 30.1 pg (26.0-34.0); MCV 91.2 fL (80.0-100.0); MEAN PLATELET VOLUME 10.5 fL (7.4-10.4); MONOCYTES 11.9 % (2-11); NEUTROPHILS 69.9 % (40-80); RBC 3.62 10x6/uL (4.00-5.40); RDW 14.6 % (11.5-14.5)
[2016-09-26 06:09] LABS: PLATELET COUNT 221 10x3/uL (130-400); WBC 9.3 10x3/uL (4.8-10.8)
[2016-09-26 06:37] LABS: ALBUMIN 2.4 g/dL (3.4-5.0); ANION GAP 7.4 mmol/L (8-16); BILIRUBIN - TOTAL 0.52 mg/dL (0.2-1.3); CALCIUM 8.8 mg/dL (8.5-10.1); CARBON DIOXIDE 35.4 mmol/L (21.0-32.0); CREATININE - SERUM 0.9 mg/dL (0.6-1.3)
[2016-09-26 06:38] LABS: POTASSIUM - SERUM 3.8 mmol/L (3.5-5.1)
[2016-09-26 08:55] VITALS: BP 131/60
--- NOTE | 2016-09-26 09:00 | NUR ---
ASSESSMENT PER FLOW SHEET.PT WITHOUT DISTRESS.CALL LIGHT IN REACH
--- NOTE | 2016-09-26 11:01 | CN ---
PATIENT NAME:SAIMA DUBON MEDICAL RECORD: [id number] : 36 LOCATION:D.MS [facility] ADMIT DATE: 09/17/16 ACCOUNT: [id number] CONSULTING PHYSICIAN: ZIGGY HODGES MD REFERRING PHYSICIAN: MOR INMAN MD DATE OF CONSULTATION: 09/25/2016 HISTORY OF PRESENT ILLNESS: Saima Dubon is a 75-year-old woman, whom I have been asked to evaluate by Dr. Jameson, stock transfer clerk regarding sarcoidosis. Ms. Dubon was admitted last week with confusion, marked hypercalcemia, renal insufficiency and dislocated left hip prosthesis, which was reduced in the Emergency Room, dislocated at 1-2 days later and reduced again. She has a past history of recurrent dislocation of prosthesis. The patient said it occurred when she fell at home. The patient was previously hospitalized here in June with hypercalcemia, cause undetermined. Current hypercalcemia and renal insufficiency resolved with hydration. The patient reports her vitamin D level levels elevated in June and was told "will just watch it." In spite of this, she continued to take vitamin D 1000 units daily and her current vitamin D level is 121. Vitamin D 1, 25 hydroxy level normal. There was some consideration of possible sarcoidosis, cause hypercalcemia. She has some chronic calcified granulomas in her chest. MARY GRACE levels pending. There is a consideration of possibly doing biopsy tissue to look for sarcoidosis, either through the mediastinoscopy or bronchoscopy. The patient had part of her right upper lobe removed in 2002 in [place] and by description and by her understanding she may have had a "white fungus." She has never smoked. She has not had any recurrent pneumonia, pleurisy, pleural effusion or pericarditis. The patient has longstanding history of some esophageal dysphagia, which is worse in the last few months to the point where she cannot eats solid foods or meat and so has been relying on 1 or 2 cans of Ensure per day. She reports over the last several months, her weight has decreased by at least 20 pounds. The patient had remote gastric stapling, probably 23 years ago and prior to that, she weighed 370 pounds. Weight gradually decrease and eventually stabilized at about 130 before her current weight loss. Records indicate she is currently 108 pounds, which she appears thinner. She was seen by Dr. Chung for GI, plan EGD tomorrow and possibly a colonoscopy. In spite of the patient's progressive weight loss and dysphagia, she had not reported this to her physicians. She denies orthopnea, PND, abdominal pain, melena or hematochezia. The patient was seen by Dr. Chung, her all round butcher, who indicates she has history of iron deficiency anemia and had lots of normal bone marrow biopsy in June 2016. No evidence of myeloma or myelodysplasia or infiltrate. CONSULT REPORT [id number] SAIMA DUBON Chest CT shows calcified bilateral hilar lymph nodes, calcified granulomas of the lungs, emphysematous changes and dilatation of esophagus throughout its length. Barium swallow study shows dilatation with severe dysmotility, but no focal luminal narrowing. Plain x-ray showed some emphysematous changes, normal heart size. Hemoglobin 10.3, WBC 6600, platelets 163,000. Sed rate 65, BUN 38, creatinine 1 and calcium is actually low at 8.2. Liver enzymes normal. CRP 6.3. Albumin 2.2. Angiotensin converting enzyme level pending. HOME MEDICATIONS: Her H&P may have been oxybutynin 10 mg daily, verapamil 240 mg daily. She also had been using Vitamin D 1000 units daily, in spite of hypervitaminosis D. PAST MEDICAL HISTORY: She has no known drug allergies. She has had bilateral total knee replacements. She had a right total hip replacement. She has left prosthetic hip with recurrent dislocations a cholecystectomy and tonsillectomy. She had gastric stapling in and before surgery weight was 370 pounds that was stabilized to 130 pounds before her most recent weight loss. She has had dysphagia for years, worsened recently and now has marked esophageal dilatation. She has myocardial infarction, angina, heart failure. She was hospitalized for diverticular bleed in 2013, requiring transfusion of packed cells. SOCIAL HISTORY: She does not report any alcohol or tobacco. She reports she was ____ and travel over the world. She currently works with hospice. She has a , who is currently in a local care facility for dementia. FAMILY HISTORY: No known family history of connective tissue diseases. REVIEW OF SYSTEMS: See present illness. Denies fever, chills, sweats, diplopia, headache, lymphadenopathy, cough, wheeze, orthopnea, chest pain, tingling paresthesias, focal muscle weakness, TIA, stroke. PHYSICAL EXAMINATION: VITAL SIGNS: Blood pressure 148/84, pulse 99 and regular, respirations 18, temperature 98. GENERAL: This is a very thin, cachectic woman, in no acute distress. HEENT: Head: Normal female hair pattern. Eyes, conjunctivae are clear. Mouth is somewhat dry. Tongue is midline. NECK: Supple. Trachea is midline. There is no adenopathy in neck, supraclavicular areas, axilla or inguinal areas. LUNGS: Clear without rales, wheeze, rhonchi or dullness. CARDIOVASCULAR: S1, S2 are normal without gallop, murmur or rub. Carotids 2+ without delay or bruit. Pedal pulses 1+. ABDOMEN: Soft, nontender, without masses or organomegaly. MUSCULOSKELETAL: Shoulders, wrists, fingers have full range of motion. She has hip abduction splint to keep her from dislocating her hip again. NEUROLOGIC: She is alert. She moves all extremities. No localizing sign. SKIN: Without sclerodactyly, telangiectasia, malar rash, discoid lupus, purpura, petechiae, nodules. CONSULT REPORT [id number] SAIMA DUBON IMPRESSION: 1. Hypercalcemia, cause undetermined, recurrent, responsive to IV fluids. 2. Acute renal insufficiency, probably associated with hypercalcemia, resolved with hydration. 3. Hypervitaminosis D. 4. Calcified granulomas in chest and calcified lymph nodes. 5. Marked esophageal dilatation with progressive dysphagia, weight loss. 6. History of gastric stapling with previous significant weight loss. RECOMMENDATIONS: 1. The patient advised to strictly avoid vitamin D supplements. 2. The patient advised to avoid any calcium supplements, Tums and bicarbonate (has not use this). 3. Await results of MARY GRACE. 4. EGD scheduled for tomorrow for esophageal dysmotility. 5. Agree with pulmonary to consider possible mediastinoscopy or bronchoscopy for lung biopsy for evidence of sarcoidosis. 6. Continue with soft liquid diet per therapy recommendations. TRANSINT:[id number] Voice Confirmation ID: [id number] DOCUMENT ID: [id number] ZIGGY HODGES MD at 1101 CC: [id number] DICTATION DATE: 09/25/162031 PLASTICS FITTER: 09/26/16 0114 [facility] [address] [place] [id number] [place] [address]
--- NOTE | 2016-09-26 12:30 | NUR ---
HAS BEEN UP IN CHAIR ALL MORNING.PT REMAINS WITHOUT DISTRESS.NEEDS MET
[2016-09-26 13:04] VITALS: BP 147/65
--- NOTE | 2016-09-26 13:51 | NUR ---
FAMILY AT SIDE.PT STILL DENIES NEEDS.CALL LIGHT IN REACH
--- NOTE | 2016-09-26 15:12 | NUR ---
CM visited the patient's bedside to deliver IMM. Patient and son were at the bedside. The patient advises she will be going to [facility] in [place]. This is close to her confucianism and friends. Her son has been assisting her w/ business while he has been in [place] to visit since her hospitalization. CM reviewed the face sheet contact information. Pt' spouse is listed for person to notify. The is in care for dementia. The son, Fortunato Haley is the person to notify. contact phone numbers are : cell [phone] home- [phone] TC to ER registration. Advised register of correction. Faxed corrected face sheet. CM also advised the primary nurse, Elma, to correct the nursing record. Provided copy of face sheet w/ correct information. Patient advised she is going for endoscopy tomorrow. She is hoping for discharge on Wednesday. Her son will return to home on Wednesday. CM to follow to assist. Awaiting decision from [facility].
[2016-09-26 16:03] VITALS: BP 134/70
--- NOTE | 2016-09-26 17:04 | NUR ---
FAMILY AT SIDE,WITHOUT DISTRESS.CALL LIGHT IN REACH
--- NOTE | 2016-09-26 19:40 | NUR ---
PT RESTING QUIETLY WITH EYES CLOSED, BREATHING EVEN AND UNLABORED ON ROOM AIR. NO S/S OF DISTRESS NOTED. LOPES TO LT SIDE OF BED. BED IN LOWEST POSITION, CALL LIGHT IN REACH, ASSESSMENT PER FLOWSHEET. WILL CONTINUE TO MONITOR.
[2016-09-26 20:38] VITALS: BP 126/60
[2016-09-27] VITALS: BP 123/60
--- NOTE | 2016-09-27 | NUR ---
PT RESTING QUIETLY IN BED WITH EYES CLOSED, BREATHING EVEN AND UNLABORED ON ROOM AIR. CALL LIGHT IN REACH, BED IN LOWEST POSITON, WILL CONTINUE TO MONITOR.
[2016-09-27 04:00] VITALS: BP 140/56
--- NOTE | 2016-09-27 04:59 | NUR ---
PATIENT SLEEPING IN SEMI-FOWLERS POSITION. NO VISUAL SIGNS OF DISTRESS. PATIENT'S BED IN LOWEST POSITION AND CALL LIGHT WITHIN REACH.
[2016-09-27 05:48] LABS: BASOPHILS 0.2 % (0.0-2.0); EOSINOPHILS 3.6 % (0-7); HEMATOCRIT 32.2 % (36.0-48.0); HEMOGLOBIN 10.6 g/dL (12-16); IMMATURE GRANULOCYTES 0.3 % (0-5); LYMPHOCYTES 11.1 % (15-50); MCH 29.9 pg (26.0-34.0); MCHC 32.9 g/dL (31.0-37.0); MEAN PLATELET VOLUME 9.9 fL (7.4-10.4); MONOCYTES 12.7 % (2-11); NEUTROPHILS 72.1 % (40-80); PLATELET COUNT 232 10x3/uL (130-400); RBC 3.54 10x6/uL (4.00-5.40); RDW 13.8 % (11.5-14.5); WBC 9.9 10x3/uL (4.8-10.8)
[2016-09-27 06:24] LABS: ALBUMIN 2.3 g/dL (3.4-5.0); ANION GAP 10.3 mmol/L (8-16); BILIRUBIN - TOTAL 0.5 mg/dL (0.2-1.3); CALCIUM 8.7 mg/dL (8.5-10.1); CARBON DIOXIDE 33.2 mmol/L (21.0-32.0); CREATININE - SERUM 0.8 mg/dL (0.6-1.3); MAGNESIUM - SERUM 1.6 mg/dL (1.8-2.4); PHOSPHOROUS 3.2 mg/dL (2.5-4.9); POTASSIUM - SERUM 3.5 mmol/L (3.5-5.1); PROTEIN - SERUM 6.1 g/dL (6.4-8.2)
--- NOTE | 2016-09-27 07:10 | NUR ---
ASSESSMENT PER FLOW SHEET.PT WITHOUT DISTRESS.NPO FOR PROCEDURE ORDERED.CALL LIGHT IN REACH
--- NOTE | 2016-09-27 08:00 | NUR ---
MAG REPLACEMENT PER PROTOCOL ORDERED.
[2016-09-27 09:00] VITALS: BP 126/63
[2016-09-27 12:45] VITALS: BP 153/59
--- NOTE | 2016-09-27 13:00 | NUR ---
AWAKE AND ALERT.FAMILY AT SIDE.PT WIHTOUT COMPLAINTS.MONITOR
--- NOTE | 2016-09-27 14:55 | NUR ---
TB SKIN TEST ORDERED TO LEFT FOREARM.
--- NOTE | 2016-09-27 15:15 | NUR ---
PT MOVED TO ROOM 2240 AND PLACED IN DROPLET ISOLATION
--- NOTE | 2016-09-27 15:47 | NUR ---
CRITICAL IONIZED CALCIUM CALLED TO VIANEY WITH RENAL.ORDERS RECIEVED AND INITIATED
--- NOTE | 2016-09-27 15:53 | NUR ---
RESTING WITHOUT DISTRESS.CALL LIGHT IN REACH
[2016-09-27 19:00] VITALS: BP 151/70
--- NOTE | 2016-09-27 22:57 | NUR ---
PT LAYING IN BED NO DISTRESS OBSERVED CALL LIGHT IN REACH REDUCTION PILLOW IN PLACE AND PEDAL PULSES INTACT AND STRONG RESPERATIONS EVEN AND UNLABORED ON ROOM AIR CALL LIGHT IN REACH SRX2 BED LOW AND LOCKED WILL MONITOR
[2016-09-28] VITALS: BP 151/66
[2016-09-28 04:00] VITALS: BP 146/64
--- NOTE | 2016-09-28 05:44 | NUR ---
PT LAYING IN BED NO DISTRESS OBSERVED CALL LIGHT IN REACH SRX2 WILL MONITOR
[2016-09-28 05:45] LABS: BASOPHILS 0.3 % (0.0-2.0); EOSINOPHILS 3.4 % (0-7); HEMATOCRIT 31.5 % (36.0-48.0); HEMOGLOBIN 10.3 g/dL (12-16); IMMATURE GRANULOCYTES 0.2 % (0-5); LYMPHOCYTES 11.4 % (15-50); MCH 30.3 pg (26.0-34.0); MCHC 32.7 g/dL (31.0-37.0); MCV 92.6 fL (80.0-100.0); MEAN PLATELET VOLUME 10.1 fL (7.4-10.4); MONOCYTES 12.8 % (2-11); NEUTROPHILS 71.9 % (40-80); PLATELET COUNT 255 10x3/uL (130-400); RDW 13.5 % (11.5-14.5); WBC 9.4 10x3/uL (4.8-10.8)
[2016-09-28 06:22] LABS: ANION GAP 9.4 mmol/L (8-16); CALCIUM 8.5 mg/dL (8.5-10.1); CREATININE - SERUM 0.8 mg/dL (0.6-1.3); MAGNESIUM - SERUM 1.9 mg/dL (1.8-2.4); POTASSIUM - SERUM 3.4 mmol/L (3.5-5.1)
--- NOTE | 2016-09-28 08:06 | NUR ---
PATIENT IS AWAKE AND ALERT, RESTING WITH HOB UP IN SEMI FOWLERS. SHE IS ALERT AND ORIENTED. SHE IS ABLE TO MAKE HER NEEDS KNOWN AND HAS REQUESTS FOR A SOFT/ LIQUID MEAL THIS MORNING. SHE REPORTS THAT HER ESOPHAGUS WAS STRETCHED YESTERDAY, THAT SHE HASN'T BEEN ABLE TO EAT FOR MONTHS. SHE ALSO REQUESTS PT ASSISTANCE UP TO THE BEDSIDE CHAIR SO THAT SHE BE UP FOR A WHILE TODAY.
[2016-09-28 08:59] VITALS: BP 126/72
--- NOTE | 2016-09-28 10:50 | NUR ---
PATIENT IS SITTING UP IN HER BEDSIDE CHAIR. CALL LIGHT IS IN HER LAP. SHE DENIES NEEDS AND STATE SHTAT SHE FEELS MUCH BETTER NOW. CONFIRMS THAT IT DOES FEEL GOOD TO BE OOB.
[2016-09-28 12:41] VITALS: BP 166/80
[2016-09-28 16:08] VITALS: BP 133/61
[2016-09-28 19:00] VITALS: BP 140/68
[2016-09-29 04:00] VITALS: BP 131/62
--- NOTE | 2016-09-29 04:00 | NUR ---
PATIENT SLEEPING WITH NO DISTRESS NOTED. DRESSING TO LEFT HIP CDI. SCD'S ON. TELEMETRY ON. B/A ON. CALL LIGHT WITHIN REACH.
[2016-09-29 04:56] LABS: BASOPHILS 0.2 % (0.0-2.0); EOSINOPHILS 3.5 % (0-7); HEMATOCRIT 31.1 % (36.0-48.0); HEMOGLOBIN 9.9 g/dL (12-16); IMMATURE GRANULOCYTES 0.3 % (0-5); LYMPHOCYTES 16.4 % (15-50); MCH 29.5 pg (26.0-34.0); MCHC 31.8 g/dL (31.0-37.0); MCV 92.6 fL (80.0-100.0); MEAN PLATELET VOLUME 10.1 fL (7.4-10.4); MONOCYTES 14.7 % (2-11); NEUTROPHILS 64.9 % (40-80); PLATELET COUNT 263 10x3/uL (130-400); RBC 3.36 10x6/uL (4.00-5.40); RDW 13.4 % (11.5-14.5); WBC 8.6 10x3/uL (4.8-10.8)
[2016-09-29 05:07] LABS: ANION GAP 5.7 mmol/L (8-16); CALCIUM 8.6 mg/dL (8.5-10.1); CARBON DIOXIDE 35.2 mmol/L (21.0-32.0); CREATININE - SERUM 0.9 mg/dL (0.6-1.3); POTASSIUM - SERUM 3.9 mmol/L (3.5-5.1)
--- NOTE | 2016-09-29 08:09 | NUR ---
PATIENT REMAINS IN NUTROPENIC ISOLATION. SITTING UP IN BED AWAKE. ALERT/ORIENT X4. RIGHT FOREARM IV SITE SALINE LOCKED. LOPES CATH DRAINING STRAW YELLOW URINE. CALL LIGHT WITHIN REACH. VOICES NO NEEDS
[2016-09-29 08:15] VITALS: BP 152/84
--- NOTE | 2016-09-29 10:44 | NUR ---
PHYSICAL THERAPIST WORKING WITH THIS PATIENT. UP IN CHAIR IN ROOM
--- NOTE | 2016-09-29 10:53 | NUR ---
PT SEEN FOR RESTAURANT HOSTESS NOTE. NO COMPLAINTS AT PRESENT EXCEPT HUNGER. REQUESTED RICE KRISPIES AND MILK-NO CEREAL ON FLOOR. GAVE VANILLA WAFERS AND MILK AND FRESH WATER. SITTING UP IN CHAIR AT BEDSIDE. REMAINS IN DROPLET ISOLATION. CALL LIGHT IN REACH
[2016-09-29] MEDS ORDERED: ELIQUIS2.5 MG PO (12:29)
[2016-09-29 12:30] VITALS: BP 157/74
[2016-09-29] MEDS ORDERED: CARAFATE1 G/10 ML PO (12:30)
[2016-09-29] MEDS ORDERED: REGLAN10 MG PO (12:30)
[2016-09-29] MEDS ORDERED: PROTONIX40 MG PO (12:30)
[2016-09-29] MEDS ORDERED: HYDROCODONE-APA1 TAB PO (12:31)
--- NOTE | 2016-09-29 14:13 | NUR ---
NEW ORDERS TO DISCHARGE BACK TO [facility] WHEN OK WITH OTHER PROVIDERS
--- NOTE | 2016-09-29 14:25 | NUR ---
CM REASSESSMENT NOTE: PATIENT IS DISCHARGING TO [facility] [place] TO A SKILLED BED BY FACILITY [facility]. PATIENTS SON (PIEDAD) HAS BEEN NOTIFIED OF DISCHARGE.
--- NOTE | 2016-09-29 14:45 | NUR ---
LOPES CATH REMOVED 800CC OF STRAW COLOR URINE IN LOPES CATH BAG. RIGHT FOREARM SALINE LOCK REMOVED WITHOUT DIFFICULTY. DRESSING REMOVED FROM LEFT HIP. SURGICAL CLIPES IN PLACE. NO DRAINAGE. NO SWELLING. NO REDNESS.
--- NOTE | 2016-09-29 15:16 | NUR ---
[facility] TRAVELERS' AID WORKER HERE TO NET APPLICATIONS DEVELOPER PATIENT. PATIENT SIGNED DISCHARGE PAPERS. CALLED [facility] TO GIVE REPORT ON THIS PATIENT. NURSE AT [facility] ASKED IF THEY COULD CALL BACK LATER DUE TO SHIFT CHANGE. THIS NURSE GAVE PHONE NUMBER AND NAME WHERE SHE CAN BE REACHED
--- NOTE | 2016-09-29 15:30 | NUR ---
CARLOS AT [facility] CALLED FOR REPORT.
--- NOTE | 2016-10-03 10:48 | OP ---
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 PROCEDURE: Revision total hip arthroplasty of the left hip. SURGEON: Steve Napier MD ANESTHESIA: General. INTRAOPERATIVE COMPLICATIONS: None. SUMMARY OF PATHOLOGIC FINDINGS: While the patient's hip was easily reducible after anesthetic induction, it was also very easily dislocatable. She had had prior posterior approach done at an outside facility. The prior posterior approach was utilized as well. OPERATIVE SUMMARY IN DETAIL: After obtaining the appropriate preoperative orthopedic surgery consent as well as anesthetic consultation, evaluation and clearance, the patient was brought to the operating room and placed on the operating table in supine position. After general laryngeal mask was administered, the patient was placed in a right lateral decubitus position. All pressure points were well padded to include down leg peroneal nerve pad as well as axillary roll. She was held firmly to the operating table using the vacuum pack suction system. Left lower extremity and hip were then prepped and draped in routine sterile fashion. Previously utilized posterior approach was utilized again. The patient was noted to have extreme paucity of posterior capsule. The piriformis and Gemelli were also ruptured along with loss of the posterior wall. Hip was dislocated, the femoral head was removed without having to take out the proximal head of the Res Mod system. The hip was serially and sequentially reamed. The decision was made to place her in more anteversion and close her angle of inclination down to try and decreased capacity for dislocation. Also, the decision was made to proceed with tripolar type fixation. After serial and sequential reaming, the hip cup was put into place with excellent fixation; however screws were utilized superiorly, posteriorly for better fixation and then trials were undertaken with the head sizes. The final head tripolar was articulated on the back field and this was then tamped in place with Cedillo taper. The hip was reduced. After reduction of the hip, posterior hip capsule was mobilized along with what could be mobilized with posterior soft tendinous tissue for reapproximation to try and prevent further dislocation. Wound was again copiously irrigated and gluteal IT band incision was closed with #2 Ethibond followed by #1 Vicryl, 2-0 Vicryl and skin axel. Sterile dressings were applied. Radiographs taken intraoperatively, showed good position and placement with slight increase in anteversion as well as closure of the angle of inclination. The patient was then placed in an abduction pillow. She was awakened and taken to the recovery room in stable condition. All final needle OPERATIVE REPORT [id number] MERVIN DUBON and sponge counts were correct. TRANSINT:[id number] Voice Confirmation ID: [id number] DOCUMENT ID: [id number] KARTHIKEYAN ZAYAS, STEVE VERA at 1048 CC: [id number] DICTATION DATE: 10/02/16 1008 ACCESS DIRECTOR: 10/02/16 1105 [facility] IN 09/29/16 [id number] [place] [address]
[2016-11-24 19:10] LABS: FUNGAL - ASP FLAVUS Negative (Neg:<1:1); FUNGAL - ASP NIGER Negative (Neg:<1:1); FUNGAL - ASPER FUMIGATUS Negative (Neg:<1:1)
== END 2016-09-29 15:31 | DRG 467 ==
LOC: D.ER 21:04 → D.M2 09-17 01:07 → D.MS 09-17 01:07
PROVIDERS: Emergency Medicine; Family Medicine; Internal Medicine Nephrology; Internal Medicine Pulmonary Disease; Orthopaedic Surgery; ADMIT Family Medicine
DX: T84.021A Dislocation of internal left hip prosthesis, initial encounter (principal); N17.9 Acute kidney failure, unspecified; Z68.1 Body mass index [BMI] 19.9 or less, adult; D62 Acute posthemorrhagic anemia; E83.52 Hypercalcemia; N18.9 Chronic kidney disease, unspecified; Z85.6 Personal history of leukemia; R62.7 Adult failure to thrive; M81.0 Age-related osteoporosis without current pathological fracture; W19.XXXA Unspecified fall, initial encounter; R63.6 Underweight; W18.30XA Fall on same level, unspecified, initial encounter; Y92.230 Patient room in hospital as the place of occurrence of the external cause; E83.41 Hypermagnesemia; E83.39 Other disorders of phosphorus metabolism; D50.9 Iron deficiency anemia, unspecified; D63.8 Anemia in other chronic diseases classified elsewhere; E87.6 Hypokalemia; J39.8 Other specified diseases of upper respiratory tract; J98.09 Other diseases of bronchus, not elsewhere classified

== ENCOUNTER 2016-10-20 12:44 | Outpatient (CLI) | payer MEDICARE, OTHER ==
[~2016-10-20] VITALS: Ht 167.6 cm; Wt 57.3 kg
[~2016-10-20 12:44] MED LIST changes: +CARAFATE1 G/10 ML PO; +ELIQUIS2.5 MG PO; +HYDROCODONE-APA1 TAB PO; +PROTONIX40 MG PO; +REGLAN10 MG PO
[2016-10-20 13:48] VITALS: BP 129/63; Ht 167.6 cm; Wt 57.3 kg
--- NOTE | 2016-10-20 15:50 | NUR ---
PATIENT LYING IN BED, DENIES COMPLAINTS, PREMED FOR BLOOD TRANSFUSION GIVEN, FIRST UNIT PRBC STARTED TO LEFT FOREARM PIV.
--- NOTE | 2016-10-20 16:05 | NUR ---
PATIENT DENIES COMPLAINTS, LYING IN BED, PRBC'S TRANSFUSING AT 50 CC/HR WITHOUT DIFFICULTY, VSS, SEE TRANSFUSION CARD FOR VITAL SIGNS DOCUMENTATION. TRANSFUSION RATE INCREASED TO 100 CC/HR AT THIS TIME.
--- NOTE | 2016-10-20 18:38 | NUR ---
SECOND UNIT PRBC'S STARTED, PATIENT LYING IN BED, DENIES COMPLAINTS
--- NOTE | 2016-10-20 19:48 | NUR ---
REPORT CALLED TO JOHN ON MED 2, PATIENT TRANSFERRED BY WHEELCHAIR IN STABLE CONDITION AND WITHOUT COMPLAINTS TO ROOM 2233
--- NOTE | 2016-10-20 20:50 | NUR ---
RECEIVED PT TO ROOM 2110 ALERT O X3. PRBC TRANSFUSING TO LEFT FA WITH NO SIGNS REACTION. VSS. ON VS MONITOR AT THIS TIME.
--- NOTE | 2016-10-20 21:03 | NUR ---
UNIT BLOOD COMPLETE, NS FLUSHING LINE. NOTIFIED INE[facility] OF PT PLANNED DC TIME OF 2200.
--- NOTE | 2016-10-20 21:30 | NUR ---
VSS, IV REMOVED WITH CATH TIP INTACT. PT TOLERATED TRANSFUSION WITH NO S/S REACTION.
--- NOTE | 2016-10-20 22:00 | NUR ---
IMPLEMENT MECHANIC HERE FROM [facility], PT NOW C/O ITCHING. GENERALIZED RASH NOTED. WILL NOTIFY DR WITT.
--- NOTE | 2016-10-20 22:31 | NUR ---
BENADRYL 25 MG GIVEN PO ORDERED BY DR WITT. TAKEN DOWNSTAIRS VIA WC.
== END 2016-10-20 22:32 | disposition other institution (70) ==
LOC: D.OPS 12:44 → D.M2 20:26 → D.OPS 22:32
DX: D64.9 Anemia, unspecified (principal)

== ENCOUNTER 2017-08-18 05:09 | Day surgery (SDC) | payer MEDICARE, OTHER ==
[~2017-08-18] VITALS: Ht 165.1 cm; Wt 60.3 kg
[2017-08-18 06:30] VITALS: BP 158/76; Ht 165.1 cm; Wt 60.3 kg
[2017-08-18 06:40] LABS: BASOPHILS 0.1 % (0-2); EOSINOPHILS 2.9 % (0-7); HEMATOCRIT 34.4 % (36.0-48.0); HEMOGLOBIN 11.5 g/dL (12-16); IMMATURE GRANULOCYTES 0.2 % (0-5); LYMPHOCYTES 8.4 % (15-50); MCH 31.5 pg (26.0-34.0); MCHC 33.4 g/dL (31.0-37.0); MCV 94.2 fL (80.0-100.0); MEAN PLATELET VOLUME 9.7 fL (7.4-10.4); MONOCYTES 12.9 % (2-11); NEUTROPHILS 75.5 % (40-80); RBC 3.65 10x6/uL (4.00-5.40); RDW 12.1 % (11.5-14.5); WBC 8.4 10x3/uL (4.8-10.8)
[2017-08-18 06:41] LABS: PLATELET COUNT 191 10x3/uL (130-400)
[2017-08-18 06:52] LABS: APTT 26.8 SECONDS (22.8-39.4); INR 1.14 (0.85-1.17); PROTIME 14.2 SECONDS (11.6-15.0)
--- NOTE | 2017-08-18 08:30 | NUR ---
0815-RECD TO ROOM, DR VILLEDA HERE TO REPORT PROCEDURE RESULTS AND ANSWER QUESTIONS. PATIENT IS ALERT. RESP WITH EASE. IV PATENT. DENIES PAIN OR NAUSEA.
--- NOTE | 2017-08-18 09:13 | NUR ---
0845--DR BECERRA CALLED AND REPORT GIVEN OF PT'S BLOOD PRESSURE 171/87, NO NEW ORDERS RECIEVED. REGINALDO RN
--- NOTE | 2017-08-18 09:48 | NUR ---
0930--PT VOIDS, IV DC'D. REGINALDO PAZ 8035--DISCHARGE INSTRUCTIONS GIVEN, PT VERBALIZES UNDERSTANDING. PT OFF UNIT VIA WC. REGINALDO PAZ
--- NOTE | 2017-08-18 13:45 | OP ---
PATIENT NAME: MERVIN DUBON MEDICAL RECORD: [id number] :38 LOCATION:[facility] ADMISSION DATE: SURGEON: DUSTIN VILLEDA MD DATE OF OPERATION: 08/18/2017 SURGEON: Dustin Villeda MD ANESTHESIA: MAC. PREOPERATIVE DIAGNOSES: Urethral stricture, bladder stones, bladder inflammation, possible interstitial cystitis. PROCEDURES: Cystoscopy, bladder stone evacuation, urethral stricture dilation to 30-Kuwaiti. FINDINGS: Severe vaginal stenosis. Urethral stricture, bladder stone debris from incomplete bladder emptying. Single ureteral orifices bilaterally. No bladder tumors. Diffuse bladder inflammation. ESTIMATED BLOOD LOSS: None. CLINICAL HISTORY: This is a 76-year-old female A2. She is a patient of Dr. Nguyen. She has a complaint of problems with incomplete bladder emptying and difficulty starting to void. She has nocturia times 3-4 and daytime urge urinary incontinence. She has been treated with oxybutynin XR 5 mg per day, which seems to control the urgency somewhat. Her postvoid residual in the office was 54 mL. She comes today to have urethral stricture dilated. We will also perform cystoscopy. She is not allergic to any medication. She was given Ance[employer] precision crop manager to the OR. DESCRIPTION OF PROCEDURE: The patient was given IV sedation. She was placed in the dorsal lithotomy position and prepped and draped. A 17-Kuwaiti cystoscope was used. We noted quite severe vaginal stenosis. The urethra was difficult to find, but we did find it. Going into the bladder, she had diffuse bladder inflammation. There was a lot of debris, which we could consider preliminary stone formation in the bladder. It was swirling around inside. There were no definite calcifications as such. No bladder tumors were seen. We used an [employer] evacuator and with a 21-Kuwaiti cystoscope sheath, we evacuated out this material. There was nothing specific to send to pathology, however. After this was done, the bladder was emptied through the cystoscope sheath and the scope was removed. Urethral sounds were used to dilate the stricture to 30-Kuwaiti. The patient was then brought to the recovery room. I will see her in a period of 1-2 weeks. If her symptoms do not improve, she may benefit from intravesical Rimso for the severe bladder inflammation that we found. TRANSINT:[id number] Voice Confirmation ID: [id number] DOCUMENT ID: [id number] OPERATIVE REPORT [id number] MERVIN DUBON ROBERT S MD at 1345 CC: [id number] DICTATION DATE: 08/18/17813 LAWN CARE WORKER: 08/18/17 1235 [facility] 08/18/17 [place] [id number] [place] [id number]
== END 2017-08-18 09:45 | disposition home or self-care (01) ==
LOC: D.OPS 05:09 → D.PAN 07:30 → D.OPS 07:30
PROVIDERS: Anesthesiology
DX: N35.9 Urethral stricture, unspecified (principal); N30.10 Interstitial cystitis (chronic) without hematuria; N21.0 Calculus in bladder; I10 Essential (primary) hypertension; K21.9 Gastro-esophageal reflux disease without esophagitis; Z01.812 Encounter for preprocedural laboratory examination

== ENCOUNTER 2018-03-24 02:39 | Inpatient (IN) | payer MEDICARE, OTHER ==
[2018-03-24] VITALS (14 sets, daily range): BP systolic 88–199; BP diastolic 60–87; Ht 165.1 cm; Wt 55.5 kg
[~2018-03-24] VITALS: Ht 165.1 cm; Wt 55.5 kg
--- NOTE | ~2018-03-24 | MORECARE ---
CASE MANAGEMENT DISCHARGE SUMMARY PATIENT: MERVIN DUBON UNIT: [id number] ADM DATE: 03/24/18 AGE: 77 : 38 SEX: F ROOM/BED: D.2302 AUTHOR: TERESA, PROCESS MAINTENANCE TECHNICIAN PHYSICIAN: REFERRING PHYSICIAN: ARNULFO SPAIN MD DATE OF SERVICE: 03/24/18 Discharge Plan Patient Name: MERVIN DUBON Facility: [facility]:[place] : 1940 Planned Disposition: Home Anticipated Discharge Date: Discharge Date: Expected LOS: Initial Reviewer: [email or web address] Initial Review Date: 03/24/2018 Generated: 03/25/18 1:19 pm Patient Name: MERVIN DUBON Page [phone] All edits/amendments must be made on the electronic document DICTATION DATE: 03/25/181217 REPRESENTATIVE PHLEBOTOMY SERVICES: 03/25/18 1218 RPT#: [id number] DC DATE: STATUS: ADM IN [facility] [address] [place] [address] END OF REPORT
[2018-03-24] MEDS ORDERED: TOPROL XL100 MG PO (02:42)
[2018-03-24 04:18] LABS: BASOPHILS 0.3 % (0-2); EOSINOPHILS 1.4 % (0-7); HEMATOCRIT 25.9 % (36.0-48.0); HEMOGLOBIN 8.5 g/dL (12-16); IMMATURE GRANULOCYTES 0.1 % (0-5); LYMPHOCYTES 15.3 % (15-50); MCH 30.5 pg (26.0-34.0); MCHC 32.8 g/dL (31.0-37.0); MCV 92.8 fL (80.0-100.0); MEAN PLATELET VOLUME 9.5 fL (7.4-10.4); MONOCYTES 12.5 % (2-11); NEUTROPHILS 70.4 % (40-80); RBC 2.79 10x6/uL (4.00-5.40); RDW 12.5 % (11.5-14.5); WBC 7.1 10x3/uL (4.8-10.8)
[2018-03-24 04:26] LABS: PLATELET COUNT 176 10x3/uL (130-400)
[2018-03-24 04:31] LABS: INR 1.13 (0.85-1.17); PROTIME 14.1 SECONDS (11.6-15.0)
[2018-03-24 04:32] LABS: ALBUMIN 2.8 g/dL (3.4-5.0); BILIRUBIN - TOTAL 0.32 mg/dL (0.2-1.3); CALCIUM 9.7 mg/dL (8.5-10.1); CARBON DIOXIDE 34.3 mmol/L (21.0-32.0); CREATININE - SERUM 1.1 mg/dL (0.6-1.3); POTASSIUM - SERUM 3.3 mmol/L (3.5-5.1)
[2018-03-24 12:56] LABS: BASOPHILS 0.3 % (0-2); EOSINOPHILS 1.3 % (0-7); HEMATOCRIT 23.2 % (36.0-48.0); HEMOGLOBIN 7.6 g/dL (12-16); IMMATURE GRANULOCYTES 0.2 % (0-5); LYMPHOCYTES 20.5 % (15-50); MCH 30.4 pg (26.0-34.0); MCHC 32.8 g/dL (31.0-37.0); MCV 92.8 fL (80.0-100.0); MEAN PLATELET VOLUME 9.3 fL (7.4-10.4); MONOCYTES 9.8 % (2-11); NEUTROPHILS 67.9 % (40-80); PLATELET COUNT 159 10x3/uL (130-400); RDW 12.6 % (11.5-14.5); WBC 6.2 10x3/uL (4.8-10.8)
[2018-03-24 14:37] LABS: HEMATOCRIT 25.8 % (36.0-48.0); HEMOGLOBIN 8.5 g/dL (12-16)
[2018-03-25] VITALS (23 sets, daily range): BP systolic 117–186; BP diastolic 56–99
[2018-03-25 00:26] LABS: BASOPHILS 0.2 % (0-2); EOSINOPHILS 2.2 % (0-7); IMMATURE GRANULOCYTES 0.2 % (0-5); LYMPHOCYTES 10.3 % (15-50); MCH 30.8 pg (26.0-34.0); MCHC 33.4 g/dL (31.0-37.0); MCV 92.2 fL (80.0-100.0); MEAN PLATELET VOLUME 9.8 fL (7.4-10.4); MONOCYTES 14.1 % (2-11); PLATELET COUNT 156 10x3/uL (130-400); RDW 13.2 % (11.5-14.5)
[2018-03-25 00:27] LABS: HEMATOCRIT 35.3 % (36.0-48.0); HEMOGLOBIN 11.8 g/dL (12-16); RBC 3.83 10x6/uL (4.00-5.40); WBC 9.7 10x3/uL (4.8-10.8)
[2018-03-25 04:22] LABS: BASOPHILS 0.3 % (0-2); EOSINOPHILS 1.9 % (0-7); LYMPHOCYTES 15.8 % (15-50); MCH 30.7 pg (26.0-34.0); MCHC 33.1 g/dL (31.0-37.0); MCV 92.7 fL (80.0-100.0); MEAN PLATELET VOLUME 9.6 fL (7.4-10.4); MONOCYTES 12.7 % (2-11); NEUTROPHILS 69.3 % (40-80); PLATELET COUNT 128 10x3/uL (130-400); RDW 13.5 % (11.5-14.5)
[2018-03-25 04:30] LABS: RBC 2.87 10x6/uL (4.00-5.40); WBC 6.7 10x3/uL (4.8-10.8)
[2018-03-25 04:31] LABS: HEMATOCRIT 26.6 % (36.0-48.0); HEMOGLOBIN 8.8 g/dL (12-16)
[2018-03-25 05:30] LABS: BASOPHILS 0.2 % (0-2); EOSINOPHILS 2.7 % (0-7); IMMATURE GRANULOCYTES 0.1 % (0-5); LYMPHOCYTES 16.4 % (15-50); MCH 31.3 pg (26.0-34.0); MONOCYTES 12.9 % (2-11); NEUTROPHILS 67.7 % (40-80); PLATELET COUNT 152 10x3/uL (130-400); RDW 13.6 % (11.5-14.5); WBC 8.2 10x3/uL (4.8-10.8)
[2018-03-25 05:31] LABS: RBC 3.52 10x6/uL (4.00-5.40)
[2018-03-25 05:32] LABS: HEMATOCRIT 32.4 % (36.0-48.0)
[2018-03-25 05:45] LABS: ALBUMIN 2.8 g/dL (3.4-5.0); ANION GAP 7.9 mmol/L (8-16); BILIRUBIN - TOTAL 0.61 mg/dL (0.2-1.3); CALCIUM 8.7 mg/dL (8.5-10.1); CARBON DIOXIDE 33.4 mmol/L (21.0-32.0); CREATININE - SERUM 1.2 mg/dL (0.6-1.3); POTASSIUM - SERUM 3.3 mmol/L (3.5-5.1)
[2018-03-25 12:09] LABS: HEMATOCRIT 36.8 % (36.0-48.0)
[2018-03-25 19:05] LABS: HEMATOCRIT 29.9 % (36.0-48.0)
[2018-03-26] VITALS (17 sets, daily range): BP systolic 141–178; BP diastolic 55–78
[2018-03-26 04:45] LABS: BASOPHILS 0.2 % (0-2); EOSINOPHILS 3.2 % (0-7); HEMOGLOBIN 11.7 g/dL (12-16); IMMATURE GRANULOCYTES 0.1 % (0-5); LYMPHOCYTES 18.5 % (15-50); MCH 30.9 pg (26.0-34.0); MCHC 33.4 g/dL (31.0-37.0); MCV 92.3 fL (80.0-100.0); MEAN PLATELET VOLUME 9.9 fL (7.4-10.4); MONOCYTES 12.4 % (2-11); NEUTROPHILS 65.6 % (40-80); PLATELET COUNT 162 10x3/uL (130-400); RBC 3.79 10x6/uL (4.00-5.40); RDW 13.2 % (11.5-14.5); WBC 9.4 10x3/uL (4.8-10.8)
[2018-03-26 05:08] LABS: ANION GAP 6.9 mmol/L (8-16); CALCIUM 8.4 mg/dL (8.5-10.1); CARBON DIOXIDE 30.6 mmol/L (21.0-32.0); CREATININE - SERUM 0.9 mg/dL (0.6-1.3)
[2018-03-26 05:18] LABS: POTASSIUM - SERUM 4.5 mmol/L (3.5-5.1)
[2018-03-26 11:52] LABS: HEMATOCRIT 36.2 % (36.0-48.0)
[2018-03-26 19:08] LABS: HEMOGLOBIN 11.2 g/dL (12-16)
[2018-03-27 04:02] VITALS: BP 145/73
[2018-03-27 04:48] LABS: BASOPHILS 0.3 % (0-2); EOSINOPHILS 3.7 % (0-7); HEMATOCRIT 31.5 % (36.0-48.0); HEMOGLOBIN 10.3 g/dL (12-16); LYMPHOCYTES 20.9 % (15-50); MCH 30.9 pg (26.0-34.0); MCHC 32.7 g/dL (31.0-37.0); MEAN PLATELET VOLUME 9.9 fL (7.4-10.4); MONOCYTES 11.8 % (2-11); NEUTROPHILS 63.3 % (40-80); PLATELET COUNT 157 10x3/uL (130-400); RBC 3.33 10x6/uL (4.00-5.40); RDW 13.3 % (11.5-14.5)
[2018-03-27 05:05] LABS: ANION GAP 8.1 mmol/L (8-16); CALCIUM 8.2 mg/dL (8.5-10.1); CARBON DIOXIDE 28.6 mmol/L (21.0-32.0); CREATININE - SERUM 0.9 mg/dL (0.6-1.3)
[2018-03-27 05:11] LABS: POTASSIUM - SERUM 3.7 mmol/L (3.5-5.1)
[2018-03-27 05:15] LABS: MCV 94.6 fL (80.0-100.0); WBC 6.8 10x3/uL (4.8-10.8)
[2018-03-27 08:25] VITALS: BP 150/68
[2018-03-27 11:59] LABS: HEMATOCRIT 31.9 % (36.0-48.0); HEMOGLOBIN 10.5 g/dL (12-16)
[2018-03-27 12:07] VITALS: BP 137/64
[2018-03-27 19:30] LABS: HEMATOCRIT 33.2 % (36.0-48.0); HEMOGLOBIN 10.9 g/dL (12-16)
[2018-03-27 20:30] VITALS: BP 135/65
[2018-03-28] VITALS (7 sets, daily range): BP systolic 124–154; BP diastolic 54–69
[2018-03-28 06:41] LABS: BASOPHILS 0.3 % (0-2); EOSINOPHILS 3.9 % (0-7); HEMATOCRIT 31.3 % (36.0-48.0); HEMOGLOBIN 10.1 g/dL (12-16); IMMATURE GRANULOCYTES 0.1 % (0-5); LYMPHOCYTES 14.8 % (15-50); MCH 30.4 pg (26.0-34.0); MCHC 32.3 g/dL (31.0-37.0); MCV 94.3 fL (80.0-100.0); MEAN PLATELET VOLUME 9.9 fL (7.4-10.4); MONOCYTES 14.2 % (2-11); NEUTROPHILS 66.7 % (40-80); PLATELET COUNT 155 10x3/uL (130-400); RBC 3.32 10x6/uL (4.00-5.40); RDW 13.2 % (11.5-14.5); WBC 6.7 10x3/uL (4.8-10.8)
[2018-03-28 06:53] LABS: CALC OSMOLALITY 287 mosm/kg (275-300); CARBON DIOXIDE 29.7 mmol/L (21.0-32.0); CHLORIDE - SERUM 110 mmol/L (98-107); CREATININE - SERUM 0.7 mg/dL (0.6-1.3); GLUCOSE 101 mg/dL (74-106); POTASSIUM - SERUM 3.7 mmol/L (3.5-5.1); SODIUM 144 mmol/L (136-145); UREA NITROGEN 16 mg/dL (7-18); eGFR NON AFRICAN AMERICAN 85 mL/min (90-120)
[2018-03-28 12:02] LABS: HEMATOCRIT 29.6 % (36.0-48.0); HEMOGLOBIN 9.5 g/dL (12-16)
[2018-03-28 19:12] LABS: HEMATOCRIT 29.7 % (36.0-48.0); HEMOGLOBIN 9.7 g/dL (12-16)
[2018-03-29 04:00] VITALS: BP 130/59
[2018-03-29 08:16] VITALS: BP 166/80
[2018-03-29 11:04] LABS: BASOPHILS 0.2 % (0-2); EOSINOPHILS 3.2 % (0-7); HEMATOCRIT 28.5 % (36.0-48.0); HEMOGLOBIN 9.3 g/dL (12-16); LYMPHOCYTES 15.1 % (15-50); MCH 30.6 pg (26.0-34.0); MCHC 32.6 g/dL (31.0-37.0); MCV 93.8 fL (80.0-100.0); MEAN PLATELET VOLUME 9.4 fL (7.4-10.4); MONOCYTES 12.9 % (2-11); NEUTROPHILS 68.6 % (40-80); PLATELET COUNT 143 10x3/uL (130-400); RBC 3.04 10x6/uL (4.00-5.40); RDW 13.1 % (11.5-14.5); WBC 6.2 10x3/uL (4.8-10.8)
[2018-03-29 11:26] LABS: ALBUMIN 2.1 g/dL (3.4-5.0); ALKALINE PHOSPHATASE 43 U/L (46-116); ALT (SGPT) 18 U/L (10-68); BILIRUBIN - TOTAL 0.28 mg/dL (0.2-1.3); CALC OSMOLALITY 289 mosm/kg (275-300); CALCIUM 7.8 mg/dL (8.5-10.1); CHLORIDE - SERUM 111 mmol/L (98-107); CREATININE - SERUM 0.7 mg/dL (0.6-1.3); GLUCOSE 93 mg/dL (74-106); POTASSIUM - SERUM 3.2 mmol/L (3.5-5.1); PROTEIN - SERUM 5.3 g/dL (6.4-8.2); SODIUM 145 mmol/L (136-145); UREA NITROGEN 16 mg/dL (7-18); eGFR NON AFRICAN AMERICAN 85 mL/min (90-120)
[2018-03-29 11:56] VITALS: BP 148/52
[2018-03-29 16:28] VITALS: BP 136/68
[2018-03-29 23:19] VITALS: BP 140/47
[2018-03-30 03:40] VITALS: BP 154/64
[2018-03-30 07:57] LABS: BASOPHILS 0.3 % (0-2); EOSINOPHILS 4.7 % (0-7); HEMATOCRIT 28.4 % (36.0-48.0); HEMOGLOBIN 9.3 g/dL (12-16); IMMATURE GRANULOCYTES 0.2 % (0-5); LYMPHOCYTES 20.4 % (15-50); MCH 30.3 pg (26.0-34.0); MCHC 32.7 g/dL (31.0-37.0); MCV 92.5 fL (80.0-100.0); MEAN PLATELET VOLUME 9.8 fL (7.4-10.4); MONOCYTES 11.2 % (2-11); NEUTROPHILS 63.2 % (40-80); PLATELET COUNT 158 10x3/uL (130-400); RBC 3.07 10x6/uL (4.00-5.40); RDW 13.1 % (11.5-14.5)
[2018-03-30 08:16] LABS: ALBUMIN 2.2 g/dL (3.4-5.0); ALKALINE PHOSPHATASE 42 U/L (46-116); ALT (SGPT) 16 U/L (10-68); BILIRUBIN - TOTAL 0.17 mg/dL (0.2-1.3); CALC OSMOLALITY 285 mosm/kg (275-300); CALCIUM 8.4 mg/dL (8.5-10.1); CARBON DIOXIDE 27.8 mmol/L (21.0-32.0); CHLORIDE - SERUM 110 mmol/L (98-107); CREATININE - SERUM 0.6 mg/dL (0.6-1.3); GLUCOSE 96 mg/dL (74-106); POTASSIUM - SERUM 3.6 mmol/L (3.5-5.1); PROTEIN - SERUM 5.5 g/dL (6.4-8.2); SODIUM 144 mmol/L (136-145); eGFR NON AFRICAN AMERICAN > 90 mL/min (90-120)
[2018-03-30 08:27] LABS: UREA NITROGEN 11 mg/dL (7-18)
[2018-03-30 08:43] VITALS: BP 175/68
[2018-03-30 12:08] VITALS: BP 166/67
[2018-03-30 16:23] VITALS: BP 168/88
[2018-03-30 21:03] VITALS: BP 158/71
[2018-03-31 01:06] VITALS: BP 168/68
[2018-03-31 04:00] VITALS: BP 183/73
[2018-03-31 06:46] LABS: BASOPHILS 0.4 % (0-2); EOSINOPHILS 4.4 % (0-7); HEMATOCRIT 26.8 % (36.0-48.0); HEMOGLOBIN 8.8 g/dL (12-16); MCH 30.3 pg (26.0-34.0); MCHC 32.8 g/dL (31.0-37.0); MCV 92.4 fL (80.0-100.0); MEAN PLATELET VOLUME 9.9 fL (7.4-10.4); MONOCYTES 13.5 % (2-11); NEUTROPHILS 59.7 % (40-80); PLATELET COUNT 166 10x3/uL (130-400); RDW 12.9 % (11.5-14.5); WBC 4.8 10x3/uL (4.8-10.8)
[2018-03-31 07:18] LABS: ALBUMIN 2.1 g/dL (3.4-5.0); ALKALINE PHOSPHATASE 41 U/L (46-116); ALT (SGPT) 16 U/L (10-68); BILIRUBIN - TOTAL 0.23 mg/dL (0.2-1.3); CALC OSMOLALITY 288 mosm/kg (275-300); CALCIUM 7.9 mg/dL (8.5-10.1); CHLORIDE - SERUM 110 mmol/L (98-107); CREATININE - SERUM 0.6 mg/dL (0.6-1.3); GLUCOSE 87 mg/dL (74-106); POTASSIUM - SERUM 3.5 mmol/L (3.5-5.1); PROTEIN - SERUM 5.1 g/dL (6.4-8.2); SODIUM 146 mmol/L (136-145); UREA NITROGEN 9 mg/dL (7-18); eGFR NON AFRICAN AMERICAN > 90 mL/min (90-120)
[2018-03-31 08:52] VITALS: BP 131/63
[2018-03-31 12:09] VITALS: BP 154/96
[2018-03-31 15:57] VITALS: BP 173/66
[2018-03-31 21:29] VITALS: BP 166/63
[2018-04-01 00:14] VITALS: BP 164/60
[2018-04-01 04:36] VITALS: BP 120/51
[2018-04-01 05:50] LABS: BASOPHILS 0.4 % (0-2); EOSINOPHILS 4.5 % (0-7); HEMATOCRIT 26.5 % (36.0-48.0); IMMATURE GRANULOCYTES 0.2 % (0-5); LYMPHOCYTES 22.5 % (15-50); MCV 91.4 fL (80.0-100.0); MEAN PLATELET VOLUME 9.9 fL (7.4-10.4); NEUTROPHILS 60.4 % (40-80); PLATELET COUNT 173 10x3/uL (130-400); RDW 12.8 % (11.5-14.5); WBC 5.2 10x3/uL (4.8-10.8)
[2018-04-01 06:20] LABS: ALBUMIN 2.1 g/dL (3.4-5.0); ALKALINE PHOSPHATASE 39 U/L (46-116); ALT (SGPT) 12 U/L (10-68); BILIRUBIN - TOTAL 0.21 mg/dL (0.2-1.3); CALC OSMOLALITY 285 mosm/kg (275-300); CALCIUM 7.9 mg/dL (8.5-10.1); CARBON DIOXIDE 29.2 mmol/L (21.0-32.0); CHLORIDE - SERUM 110 mmol/L (98-107); CREATININE - SERUM 0.6 mg/dL (0.6-1.3); GLUCOSE 100 mg/dL (74-106); POTASSIUM - SERUM 3.5 mmol/L (3.5-5.1); PROTEIN - SERUM 5.3 g/dL (6.4-8.2); SODIUM 144 mmol/L (136-145); UREA NITROGEN 11 mg/dL (7-18); eGFR NON AFRICAN AMERICAN > 90 mL/min (90-120)
[2018-04-01 08:31] VITALS: BP 166/76
[2018-04-01 13:32] VITALS: BP 150/64
[2018-04-01 16:13] VITALS: BP 143/77
[2018-04-01 20:00] VITALS: BP 146/66
[2018-04-02] VITALS: BP 168/66
[2018-04-02 04:00] VITALS: BP 144/63
[2018-04-02 05:57] LABS: BASOPHILS 0.1 % (0-2); EOSINOPHILS 2.4 % (0-7); HEMATOCRIT 26.5 % (36.0-48.0); HEMOGLOBIN 8.8 g/dL (12-16); IMMATURE GRANULOCYTES 0.1 % (0-5); LYMPHOCYTES 17.6 % (15-50); MCH 30.3 pg (26.0-34.0); MCHC 33.2 g/dL (31.0-37.0); MCV 91.4 fL (80.0-100.0); MEAN PLATELET VOLUME 9.3 fL (7.4-10.4); MONOCYTES 13.8 % (2-11); PLATELET COUNT 171 10x3/uL (130-400); RDW 12.8 % (11.5-14.5); WBC 6.7 10x3/uL (4.8-10.8)
[2018-04-02 06:22] LABS: ALBUMIN 2.3 g/dL (3.4-5.0); ALKALINE PHOSPHATASE 37 U/L (46-116); BILIRUBIN - TOTAL 0.23 mg/dL (0.2-1.3); CALC OSMOLALITY 283 mosm/kg (275-300); CALCIUM 8.3 mg/dL (8.5-10.1); CARBON DIOXIDE 29.7 mmol/L (21.0-32.0); CHLORIDE - SERUM 108 mmol/L (98-107); CREATININE - SERUM 0.7 mg/dL (0.6-1.3); GLUCOSE 100 mg/dL (74-106); POTASSIUM - SERUM 3.6 mmol/L (3.5-5.1); PROTEIN - SERUM 5.6 g/dL (6.4-8.2); SODIUM 143 mmol/L (136-145); UREA NITROGEN 11 mg/dL (7-18); eGFR NON AFRICAN AMERICAN 85 mL/min (90-120)
[2018-04-02 06:28] LABS: ALT (SGPT) 19 U/L (10-68)
[2018-04-02 09:19] VITALS: BP 154/69
[2018-04-02] MEDS ORDERED: LISINOPRIL10 MG PO (09:49)
[2018-04-02] MEDS ORDERED: PROTONIX40 MG PO (09:50)
[2018-04-02] MEDS ORDERED: FLAGYL500 MG PO (09:52)
[2018-04-02] MEDS ORDERED: CARAFATE1 G/10 ML PO (09:54)
[2018-04-02 12:16] VITALS: BP 135/62
== END 2018-04-02 14:15 | disposition home health service (06) | DRG 381 ==
LOC: OBSVTIME → D.ER 02:39 → D.OPS 02:39 → D.EDHOLD 07:02 → D.ER 07:02 → D.MS 07:02 → OBSVTIME 07:02 → D.EDHOLD 07:02 → D.MS 07:27 → D.ER 08:40 → D.MS 13:29 → D.ICU 13:29 → D.MS 14:10 → D.ICU 14:10 → EDSTATUS 16:30 → D.ICU 03-26 19:03 → D.MS 03-26 19:03
PROVIDERS: Family Medicine; Family Medicine Adult Medicine; Internal Medicine Gastroenterology; Internal Medicine Nephrology
PROC: 0DB78ZX Excision of Stomach, Pylorus, Via Natural or Artificial Opening Endoscopic, Diagnostic (ICD-10-PCS; 2018-03-24)
PROC: 0DB98ZX Excision of Duodenum, Via Natural or Artificial Opening Endoscopic, Diagnostic (ICD-10-PCS; principal; 2018-03-24 16:30)
PROC: 0DJD8ZZ Inspection of Lower Intestinal Tract, Via Natural or Artificial Opening Endoscopic (ICD-10-PCS; 2018-03-30)
DX: K22.11 Ulcer of esophagus with bleeding (principal); D62 Acute posthemorrhagic anemia; N17.9 Acute kidney failure, unspecified; K29.71 Gastritis, unspecified, with bleeding; K57.31 Diverticulosis of large intestine without perforation or abscess with bleeding; K44.9 Diaphragmatic hernia without obstruction or gangrene; I10 Essential (primary) hypertension; E87.6 Hypokalemia; E83.52 Hypercalcemia; E83.39 Other disorders of phosphorus metabolism; E83.41 Hypermagnesemia

== ENCOUNTER 2018-04-03 09:43 | Inpatient (IN) | payer MEDICARE, OTHER ==
[~2018-04-03] VITALS: Ht 167.6 cm; Wt 60.0 kg
[2018-04-03] VITALS (12 sets, daily range): BP systolic 157–203; BP diastolic 66–91; BMI 19.7
[~2018-04-03 09:43] MED LIST changes: +FLAGYL500 MG PO; +LISINOPRIL10 MG PO; +TOPROL XL100 MG PO
[2018-04-03 10:36] LABS: BASOPHILS 0.2 % (0-2); EOSINOPHILS 0.5 % (0-7); HEMATOCRIT 30.3 % (36.0-48.0); IMMATURE GRANULOCYTES 0.2 % (0-5); LYMPHOCYTES 11.2 % (15-50); MCH 30.6 pg (26.0-34.0); MCV 92.7 fL (80.0-100.0); MEAN PLATELET VOLUME 9.5 fL (7.4-10.4); NEUTROPHILS 76.9 % (40-80); PLATELET COUNT 188 10x3/uL (130-400); RBC 3.27 10x6/uL (4.00-5.40); RDW 12.8 % (11.5-14.5)
[2018-04-03 10:37] LABS: WBC 9.9 10x3/uL (4.8-10.8)
[2018-04-03 10:58] LABS: ALBUMIN 2.7 g/dL (3.4-5.0); ANION GAP 11.3 mmol/L (8-16); BILIRUBIN - TOTAL 0.31 mg/dL (0.2-1.3); CALCIUM 8.8 mg/dL (8.5-10.1); CARBON DIOXIDE 29.7 mmol/L (21.0-32.0); CREATININE - SERUM 0.8 mg/dL (0.6-1.3)
[2018-04-03 13:47] LABS: INR 1.26 (0.85-1.17); PROTIME 15.3 SECONDS (11.6-15.0)
[2018-04-03 16:14] LABS: HEMATOCRIT 27.2 % (36.0-48.0)
[2018-04-03 22:35] LABS: HEMATOCRIT 27.3 % (36.0-48.0)
[2018-04-04] VITALS (24 sets, daily range): BP systolic 146–182; BP diastolic 61–77; Ht 167.6 cm; Wt 60.0 kg
[2018-04-04 04:09] LABS: BASOPHILS 0.3 % (0-2); EOSINOPHILS 1.4 % (0-7); HEMATOCRIT 26.2 % (36.0-48.0); HEMOGLOBIN 8.7 g/dL (12-16); IMMATURE GRANULOCYTES 0.1 % (0-5); LYMPHOCYTES 13.4 % (15-50); MCH 30.5 pg (26.0-34.0); MCHC 33.2 g/dL (31.0-37.0); MCV 91.9 fL (80.0-100.0); MEAN PLATELET VOLUME 9.9 fL (7.4-10.4); MONOCYTES 12.4 % (2-11); NEUTROPHILS 72.4 % (40-80); PLATELET COUNT 189 10x3/uL (130-400); RBC 2.85 10x6/uL (4.00-5.40); RDW 12.9 % (11.5-14.5)
[2018-04-04 04:30] LABS: ALBUMIN 2.3 g/dL (3.4-5.0); ALKALINE PHOSPHATASE 32 U/L (46-116); ALT (SGPT) 14 U/L (10-68); BILIRUBIN - TOTAL 0.31 mg/dL (0.2-1.3); CALC OSMOLALITY 280 mosm/kg (275-300); CARBON DIOXIDE 28.4 mmol/L (21.0-32.0); CHLORIDE - SERUM 109 mmol/L (98-107); CREATININE - SERUM 0.7 mg/dL (0.6-1.3); GLUCOSE 88 mg/dL (74-106); PROTEIN - SERUM 5.5 g/dL (6.4-8.2); SODIUM 142 mmol/L (136-145); UREA NITROGEN 10 mg/dL (7-18); eGFR NON AFRICAN AMERICAN 85 mL/min (90-120)
[2018-04-04 04:33] LABS: POTASSIUM - SERUM 3.1 mmol/L (3.5-5.1)
[2018-04-04 18:20] LABS: HEMATOCRIT 30.9 % (36.0-48.0); HEMOGLOBIN 10.2 g/dL (12-16)
[2018-04-04 22:08] LABS: HEMATOCRIT 29.8 % (36.0-48.0)
[2018-04-05] VITALS (14 sets, daily range): BP systolic 99–183; BP diastolic 55–89
[2018-04-05 05:06] LABS: BASOPHILS 0.5 % (0-2); EOSINOPHILS 2.6 % (0-7); HEMATOCRIT 29.6 % (36.0-48.0); HEMOGLOBIN 9.7 g/dL (12-16); IMMATURE GRANULOCYTES 0.2 % (0-5); LYMPHOCYTES 14.1 % (15-50); MCH 29.8 pg (26.0-34.0); MCHC 32.8 g/dL (31.0-37.0); MCV 90.8 fL (80.0-100.0); MEAN PLATELET VOLUME 10.1 fL (7.4-10.4); MONOCYTES 14.7 % (2-11); NEUTROPHILS 67.9 % (40-80); PLATELET COUNT 175 10x3/uL (130-400); RBC 3.26 10x6/uL (4.00-5.40); RDW 13.9 % (11.5-14.5); WBC 6.1 10x3/uL (4.8-10.8)
[2018-04-05 05:52] LABS: ALBUMIN 2.2 g/dL (3.4-5.0); ALKALINE PHOSPHATASE 36 U/L (46-116); ALT (SGPT) 13 U/L (10-68); BILIRUBIN - TOTAL 0.35 mg/dL (0.2-1.3); CALCIUM 7.6 mg/dL (8.5-10.1); CHLORIDE - SERUM 111 mmol/L (98-107); CREATININE - SERUM 0.6 mg/dL (0.6-1.3); GLUCOSE 89 mg/dL (74-106); SODIUM 145 mmol/L (136-145); eGFR NON AFRICAN AMERICAN > 90 mL/min (90-120)
[2018-04-05 05:58] LABS: CALC OSMOLALITY 285 mosm/kg (275-300); POTASSIUM - SERUM 3.3 mmol/L (3.5-5.1); UREA NITROGEN 7 mg/dL (7-18)
[2018-04-05 13:35] LABS: HEMATOCRIT 30.3 % (36.0-48.0); HEMOGLOBIN 10.1 g/dL (12-16)
[2018-04-05 21:33] LABS: HEMATOCRIT 28.6 % (36.0-48.0); HEMOGLOBIN 9.5 g/dL (12-16)
[2018-04-06 05:28] VITALS: BP 155/68
[2018-04-06 06:22] LABS: ALBUMIN 2.3 g/dL (3.4-5.0); ALKALINE PHOSPHATASE 37 U/L (46-116); BILIRUBIN - TOTAL 0.34 mg/dL (0.2-1.3); CALC OSMOLALITY 280 mosm/kg (275-300); CALCIUM 8.2 mg/dL (8.5-10.1); CARBON DIOXIDE 26.8 mmol/L (21.0-32.0); CHLORIDE - SERUM 108 mmol/L (98-107); CREATININE - SERUM 0.7 mg/dL (0.6-1.3); GLUCOSE 103 mg/dL (74-106); POTASSIUM - SERUM 3.8 mmol/L (3.5-5.1); SODIUM 142 mmol/L (136-145); UREA NITROGEN 6 mg/dL (7-18); eGFR NON AFRICAN AMERICAN 85 mL/min (90-120)
[2018-04-06 06:23] LABS: ALT (SGPT) 17 U/L (10-68)
[2018-04-06 07:04] LABS: BASOPHILS 0.1 % (0-2); EOSINOPHILS 3.3 % (0-7); HEMATOCRIT 31.8 % (36.0-48.0); HEMOGLOBIN 10.6 g/dL (12-16); LYMPHOCYTES 16.9 % (15-50); MCH 30.2 pg (26.0-34.0); MCHC 33.3 g/dL (31.0-37.0); MCV 90.6 fL (80.0-100.0); MEAN PLATELET VOLUME 10.1 fL (7.4-10.4); MONOCYTES 12.2 % (2-11); NEUTROPHILS 67.5 % (40-80); RBC 3.51 10x6/uL (4.00-5.40); RDW 13.8 % (11.5-14.5)
[2018-04-06 07:08] LABS: PLATELET COUNT 220 10x3/uL (130-400)
[2018-04-06 09:12] VITALS: BP 180/87
[2018-04-06] MEDS ORDERED: NORVASC10 MG PO (10:42)
[2018-04-06 12:08] VITALS: BP 164/78
== END 2018-04-06 16:15 | disposition home health service (06) | DRG 378 ==
LOC: D.ER 09:43 → D.ICU 13:45 → D.EDHOLD 13:45 → D.M2 13:45 → D.ICU 22:56 → D.M2 04-05 17:06
PROVIDERS: Family Medicine; Family Medicine Adult Medicine; Internal Medicine Gastroenterology
DX: K92.2 Gastrointestinal hemorrhage, unspecified (principal); D62 Acute posthemorrhagic anemia; N17.9 Acute kidney failure, unspecified

== ENCOUNTER 2018-06-02 15:22 | Inpatient (IN) | payer MEDICARE, OTHER ==
[~2018-06-02] VITALS: Ht 152.4 cm; Wt 52.2 kg
--- NOTE | ~2018-06-02 | DS ---
PATIENT:MERVIN DUBON :36 MEDICAL RECORD: [id number] DISCHARGE SUMMARY ADMISSION DATE: 06/02/18 DISCHARGE DATE: 06/21/18 This is a discharge dated 06/21/2018 from inpatient rehabilitation. PRIMARY DIAGNOSIS: Decreased functional ability and ability to provide activities of daily living, status post a left distal femur fracture after a fall, status post repair. SECONDARY DIAGNOSES: 1. Gastrointestinal bleed with positive stool guaiacs. 2. Hypokalemia. 3. Erosive esophagitis. 4. Anemia. 5. Osteoporosis. 6. Hypertension. CONSULTS THIS HOSPITALIZATION: GI with Dr. Tolbert. PROCEDURES THIS HOSPITAL STAY: EGD on 06/07/2018 with findings of an esophageal ulcer or a bleeding esophageal ulcer and a small hiatal hernia. HOSPITAL COURSE: Full H&P is located elsewhere on the chart on this 77-year-old female who was admitted to inpatient rehab for physical therapy and occupational therapy to improve gait, transfer skills, bed mobility, and activities of daily living to a modified independent level. She was evaluated by PT and OT and their plans of care were followed. She required senior living care for observation and assessment and medication administration. Electrolytes were managed by protocol. She remained on appropriate home medications. She had some positive stool guaiacs. GI was consulted. She was seen by Dr. Tolbert and underwent EGD with findings as listed above. She remained on Zantac, PPI, and Carafate. She developed some swelling in the left lower extremity. Venous Doppler was negative for DVT. She was cooperative with therapies, progressing towards goals and able to ambulate 200 feet with assistance. She was stable for discharge on 06/21/2018. DISCHARGE MEDICATIONS: As per discharge medication reconciliation. DISCHARGE DISPOSITION: She is discharged to [facility] where she will continue with PT and OT. She will follow up with primary care and specialists as directed. At least 30 minutes was spent in this discharge activity. TRANSINT:[id number] Voice Confirmation ID: [id number] DOCUMENT ID: [id number] Dictated By: YANDEL SALMON I have interviewed/examined the above patient and agree with these documented findings. DISCHARGE SUMMARY REPORT [id number] MERVIN DUBON TANIKA LIAO MD CC: [id number] DICTATION DATE: 07/24/18 1614 WELT TRIMMING MACHINE OPERATOR: 07/25/18 0826 DIS IN 06/21/18 [facility] [address] [facility] [place] [address]
--- NOTE | ~2018-06-02 | RHP ---
PATIENT: MERVIN DUBON MEDICAL RECORD: [id number] ACCOUNT: [id number] LOCATION:[facility]1113 : 36 ADMISSION DATE: 06/02/18 REHABILITATION HISTORY AND PHYSICAL EXAMINATION POST ADMISSION PHYSICIAN EXAMINATION POST-ADMISSION PHYSICAL EXAMINATION AND HISTORY AND PHYSICAL DATE OF ADMISSION: 06/02/2018 ADMITTING DIAGNOSES: Comminuted subcondylar periprosthetic fracture of the left distal femur. HISTORY OF PRESENT ILLNESS: The patient is a 77-year-old female patient admitted to the inpatient rehab with a left distal femur fracture after a fall. She was admitted to the Emergency Room on 05/28 when she arrived in the a.m. via EMS with chief complaint of fall with left hip and knee pain. The patient fell approximately 2 hours prior to arrival, complains of pain over the left knee and hip. The patient states that she was unable to stand up and bear weight on the extremity. 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 She reports that any palpation or movement to this hip or leg cause a lot of pain. She denied any neck injuries, head injury, or loss of consciousness. On exam, the lower leg was noted to be externally rotated. There was marked tenderness to palpation and marked pain with any palpation or attempted range of motion. There was marked tenderness to palpation of the distal femur as well. Mild pain with lateral compression over the pelvis. Mild pain with gentle rotation and motion of the left hip. Joint x-ray showed an acute displaced angulated fracture of the distal left femur metadiaphysis. She was admitted to the Emergency Room with ortho consult. On 05/30, she went to the OR for ORIF of the left distal femur. GI was consulted secondary to anemia and recent hospitalization for an upper and lower GI bleed. She had acute blood loss anemia with an H&H of 7.3 and 22.4. She received a total of 4 units of packed red blood cells. GI review of systems was basically negative. She felt like the anemia was due to the fracture and discussed orthopedic surgery. Previously she lived alone, was moderately independent with rolling walker and ADLs for mobility. Currently, she is mod-to-max assist with ADLs and mobility. She is on continuous O2 at 2-3 liters. She is nonweightbearing on her left lower extremity. She is max assist for bed mobility and max assist for sit to stand at 75% assist. BARRIERS TO DISCHARGE: She lives alone. She had a recent fall. She has got episodes of confusion and she is currently nonweightbearing on her left lower extremity. COMORBIDITIES: Include status post ORIF of left distal femur, acute blood loss anemia, postop confusion, postop hypoxia, fall, osteoporosis, history of recent GI bleed, esophageal ulcers, erosive esophagitis, and duodenitis. PAST MEDICAL HISTORY: Significant for a history of joint pain. PAST SURGICAL HISTORY: Includes bilateral hip and knee replacements in the past. ALLERGIES: No known drug allergies. HISTORY AND PHYSICAL [id number] MERVIN DUBON CURRENT MEDICATIONS: Include Ditropan XL 5 mg daily, metoprolol XL 100 mg daily, lisinopril 10 mg daily, amlodipine 10 mg daily, MiraLax 17 grams in 8 ounces of water daily, Carafate 1 gram q.a.c and at bedtime, Floranex 250 mg at bedtime, Protonix 40 mg b.i.d., and oxycodone 10/325 as needed for pain. HABITS: No alcohol or tobacco use. FAMILY HISTORY: Noncontributory. SOCIAL HISTORY: The patient hopes to return back home and get back to her prior level of functioning. REVIEW OF SYSTEMS: GENERAL: Does complain of weakness and fatigue. HEENT: Denies cold, cough, or congestion. CARDIOVASCULAR: Denies chest pain. PHYSICAL EXAMINATION: VITAL SIGNS: She does have a noted low-grade temperature of 100.5. Her blood pressure is 133/55. GENERAL: A well-developed female, in no acute distress upon exam. HEENT: Normocephalic and atraumatic. Mucosa moist. NECK: Supple. No lymphadenopathy. LUNGS: Clear at this time. HEART: Regular rate and rhythm. ABDOMEN: Benign. EXTREMITIES: Does have postop swelling, which appears within normal limits. NEUROLOGIC: She does have proximal muscle weakness. LABORATORY DATA: White count of 7.1, H&H of 11 and 33, and platelet count was noted to be 188. Sodium is 139, potassium 3.7, BUN and creatinine of 13 and 0.6, and blood sugar 112. ASSESSMENT: This is a 77-year-old female patient admitted to the rehab with a working diagnosis of status post left femur fracture and an ORIF of this fracture. The patient has potential to make improvement. We will institute the following multidisciplinary therapies including, but not limited to, physical, occupational, respiratory, speech, nutritional services, prosthetics and orthotics. Given her complex medical condition and risks for more complications, rehabilitation services cannot be provided at a low level of care such as a detention facility. PLAN: 1. Admit to [facility] for intensive inpatient therapy to include the following disciplines: A. Physical therapy to improve gait, all transfer skills and bed mobility to a modified independent level. B. Occupational therapy to improve activities of daily living to a modified independent level. C. Case management to assist with discharge planning and placement options. D. Nutrition to assist with nutritional needs. E. Rehabilitation nursing to assist in monitoring the patient's underlying medical conditions and to assist with any type of bowel or bladder management. 2. The patient's current medications and medical care will be continued. 3. The patient will be placed on standard fall precautions. HISTORY AND PHYSICAL [id number] MERVIN DUBON 4. The patient's estimated length of stay is approximately 7-10 days. 5. We will discuss this patient during care team staff meeting this week. We are going get UA to make sure that there are no signs of any urinary tract infection. We will watch her low-grade temperature. We will watch for any signs of blood loss anemia and we will treat appropriately. TRANSINT:[id number] Voice Confirmation ID: [id number] DOCUMENT ID: [id number] RICK notes whether there has been none or any medical/functional change since admission: - No change since prescreen. RICK attests patient continues to be appropriate for IRF: - Continues to be appropriate. TANIKA LIAO MD at 1812 CC: [id number] DICTATION DATE: 06/03/1825 CLAIM SPECIALIST: 06/03/18 0847 ADM IN [facility] [address] [id number]
[~2018-06-02 15:22] MED LIST changes: +NORVASC10 MG PO
[2018-06-02 16:42] VITALS: BP 133/55
[2018-06-03 06:03] LABS: HEMATOCRIT 33.5 % (36.0-48.0); HEMOGLOBIN 11.1 g/dL (12-16); MCH 30.3 pg (26.0-34.0); MCHC 33.1 g/dL (31.0-37.0); MCV 91.5 fL (80.0-100.0); PLATELET COUNT 188 10x3/uL (130-400); RBC 3.66 10x6/uL (4.00-5.40); RDW 14.3 % (11.5-14.5); WBC 7.1 10x3/uL (4.8-10.8)
[2018-06-03 06:14] LABS: CALC OSMOLALITY 278 mosm/kg (275-300); CALCIUM 8.8 mg/dL (8.5-10.1); CHLORIDE - SERUM 104 mmol/L (98-107); CREATININE - SERUM 0.6 mg/dL (0.6-1.3); GLUCOSE 112 mg/dL (74-106); POTASSIUM - SERUM 3.7 mmol/L (3.5-5.1); SODIUM 139 mmol/L (136-145); UREA NITROGEN 13 mg/dL (7-18); eGFR NON AFRICAN AMERICAN > 90 mL/min (90-120)
[2018-06-03 07:20] LABS: LYMPHOCYTES 23 % (15-50); MONOCYTES 8 % (2-11); NEUTROPHILS 68 % (40-80); PLATELET ESTIMATE NORMAL
[2018-06-03 12:40] VITALS: Ht 152.4 cm; Wt 52.2 kg
[2018-06-03 19:33] VITALS: BP 159/59
[2018-06-03 20:59] LABS: APPEARANCE HAZY (CLEAR); BACTERIA FEW /hpf (NONE SEEN); BILIRUBIN NEGATIVE (NEGATIVE); COLOR YELLOW (YELLOW); EPITHELIAL CELLS RARE /hpf (0-5); GLUCOSE NEGATIVE (NEGATIVE); KETONE NEGATIVE (NEGATIVE); NITRITE NEGATIVE (NEGATIVE); PROTEIN TRACE mg/dL (NEGATIVE); SPECIFIC GRAVITY 1.015 (1.005-1.020); UROBILINOGEN NORMAL (NORMAL); WHITE CELLS - URINE 0-5 /hpf (0-5)
[2018-06-04 05:39] LABS: BASOPHILS 0.1 % (0-2); EOSINOPHILS 1.6 % (0-7); HEMATOCRIT 31.5 % (36.0-48.0); HEMOGLOBIN 10.5 g/dL (12-16); IMMATURE GRANULOCYTES 0.3 % (0-5); LYMPHOCYTES 15.4 % (15-50); MCHC 33.3 g/dL (31.0-37.0); MEAN PLATELET VOLUME 9.6 fL (7.4-10.4); MONOCYTES 14.2 % (2-11); NEUTROPHILS 68.4 % (40-80); PLATELET COUNT 211 10x3/uL (130-400); WBC 7.5 10x3/uL (4.8-10.8)
[2018-06-04 05:57] LABS: CALC OSMOLALITY 283 mosm/kg (275-300); CALCIUM 8.3 mg/dL (8.5-10.1); CARBON DIOXIDE 29.5 mmol/L (21.0-32.0); CHLORIDE - SERUM 103 mmol/L (98-107); CREATININE - SERUM 0.5 mg/dL (0.6-1.3); GLUCOSE 139 mg/dL (74-106); POTASSIUM - SERUM 3.9 mmol/L (3.5-5.1); SODIUM 140 mmol/L (136-145); eGFR NON AFRICAN AMERICAN > 90 mL/min (90-120)
[2018-06-04 06:00] LABS: UREA NITROGEN 20 mg/dL (7-18)
[2018-06-04 07:31] VITALS: BP 141/78
[2018-06-04 19:44] VITALS: BP 117/49
[2018-06-05 09:57] VITALS: BP 122/63
[2018-06-05 21:08] VITALS: BP 132/74
[2018-06-06 07:47] LABS: BASOPHILS 0.2 % (0-2); EOSINOPHILS 3.2 % (0-7); HEMATOCRIT 31.3 % (36.0-48.0); HEMOGLOBIN 10.1 g/dL (12-16); IMMATURE GRANULOCYTES 0.6 % (0-5); LYMPHOCYTES 12.4 % (15-50); MCH 29.6 pg (26.0-34.0); MCHC 32.3 g/dL (31.0-37.0); MCV 91.8 fL (80.0-100.0); MEAN PLATELET VOLUME 9.5 fL (7.4-10.4); MONOCYTES 12.9 % (2-11); NEUTROPHILS 70.7 % (40-80); RBC 3.41 10x6/uL (4.00-5.40); RDW 14.1 % (11.5-14.5); WBC 9.4 10x3/uL (4.8-10.8)
[2018-06-06 07:48] LABS: PLATELET COUNT 284 10x3/uL (130-400)
[2018-06-06 07:54] LABS: CALC OSMOLALITY 280 mosm/kg (275-300); CALCIUM 8.9 mg/dL (8.5-10.1); CARBON DIOXIDE 29.2 mmol/L (21.0-32.0); CHLORIDE - SERUM 102 mmol/L (98-107); CREATININE - SERUM 0.6 mg/dL (0.6-1.3); GLUCOSE 122 mg/dL (74-106); POTASSIUM - SERUM 4.1 mmol/L (3.5-5.1); SODIUM 139 mmol/L (136-145); UREA NITROGEN 19 mg/dL (7-18); eGFR NON AFRICAN AMERICAN > 90 mL/min (90-120)
[2018-06-06 07:58] VITALS: BP 132/67
[2018-06-06 19:00] VITALS: BP 139/64
[2018-06-07 05:54] LABS: BASOPHILS 0.3 % (0-2); EOSINOPHILS 1.7 % (0-7); HEMATOCRIT 30.9 % (36.0-48.0); IMMATURE GRANULOCYTES 0.5 % (0-5); MCH 29.8 pg (26.0-34.0); MCHC 32.4 g/dL (31.0-37.0); MONOCYTES 12.4 % (2-11); NEUTROPHILS 74.1 % (40-80); PLATELET COUNT 284 10x3/uL (130-400); RBC 3.36 10x6/uL (4.00-5.40); WBC 9.2 10x3/uL (4.8-10.8)
[2018-06-07 08:00] VITALS: BP 152/60
[2018-06-08 06:22] LABS: BASOPHILS 0.2 % (0-2); EOSINOPHILS 1.9 % (0-7); HEMATOCRIT 31.8 % (36.0-48.0); HEMOGLOBIN 10.1 g/dL (12-16); IMMATURE GRANULOCYTES 1.1 % (0-5); LYMPHOCYTES 11.6 % (15-50); MCH 29.5 pg (26.0-34.0); MCHC 31.8 g/dL (31.0-37.0); MEAN PLATELET VOLUME 9.8 fL (7.4-10.4); MONOCYTES 11.7 % (2-11); NEUTROPHILS 73.5 % (40-80); RBC 3.42 10x6/uL (4.00-5.40); RDW 14.3 % (11.5-14.5); WBC 9.3 10x3/uL (4.8-10.8)
[2018-06-08 06:29] LABS: CALC OSMOLALITY 280 mosm/kg (275-300); CALCIUM 8.4 mg/dL (8.5-10.1); CARBON DIOXIDE 29.4 mmol/L (21.0-32.0); CHLORIDE - SERUM 103 mmol/L (98-107); CREATININE - SERUM 0.6 mg/dL (0.6-1.3); GLUCOSE 116 mg/dL (74-106); POTASSIUM - SERUM 3.6 mmol/L (3.5-5.1); SODIUM 139 mmol/L (136-145); UREA NITROGEN 19 mg/dL (7-18); eGFR NON AFRICAN AMERICAN > 90 mL/min (90-120)
[2018-06-08 06:32] LABS: PLATELET COUNT 363 10x3/uL (130-400)
[2018-06-08 08:00] VITALS: BP 136/66
[2018-06-08 19:00] VITALS: BP 113/68
[2018-06-09 08:00] VITALS: BP 134/63
[2018-06-09 19:00] VITALS: BP 123/57
[2018-06-10 06:15] LABS: BASOPHILS 0.2 % (0-2); EOSINOPHILS 1.9 % (0-7); HEMATOCRIT 30.9 % (36.0-48.0); HEMOGLOBIN 9.9 g/dL (12-16); LYMPHOCYTES 10.8 % (15-50); MCH 29.7 pg (26.0-34.0); MCV 92.8 fL (80.0-100.0); MEAN PLATELET VOLUME 9.7 fL (7.4-10.4); NEUTROPHILS 74.1 % (40-80); PLATELET COUNT 380 10x3/uL (130-400); RBC 3.33 10x6/uL (4.00-5.40); RDW 14.1 % (11.5-14.5); WBC 8.2 10x3/uL (4.8-10.8)
[2018-06-10 06:39] LABS: CALC OSMOLALITY 279 mosm/kg (275-300); CALCIUM 8.4 mg/dL (8.5-10.1); CARBON DIOXIDE 31.8 mmol/L (21.0-32.0); CHLORIDE - SERUM 103 mmol/L (98-107); CREATININE - SERUM 0.6 mg/dL (0.6-1.3); GLUCOSE 115 mg/dL (74-106); POTASSIUM - SERUM 3.4 mmol/L (3.5-5.1); SODIUM 140 mmol/L (136-145); eGFR NON AFRICAN AMERICAN > 90 mL/min (90-120)
[2018-06-10 06:41] LABS: UREA NITROGEN 13 mg/dL (7-18)
[2018-06-10 08:00] VITALS: BP 136/73
[2018-06-10 19:00] VITALS: BP 153/62
[2018-06-11 08:00] VITALS: BP 134/58
[2018-06-11 19:30] VITALS: BP 126/55
[2018-06-12 08:57] VITALS: BP 145/73
[2018-06-12 20:11] VITALS: BP 130/57
[2018-06-13 06:19] LABS: BASOPHILS 0.2 % (0-2); EOSINOPHILS 1.5 % (0-7); HEMATOCRIT 32.1 % (36.0-48.0); HEMOGLOBIN 10.3 g/dL (12-16); IMMATURE GRANULOCYTES 0.5 % (0-5); LYMPHOCYTES 12.5 % (15-50); MCH 29.7 pg (26.0-34.0); MCHC 32.1 g/dL (31.0-37.0); MCV 92.5 fL (80.0-100.0); MEAN PLATELET VOLUME 9.7 fL (7.4-10.4); MONOCYTES 11.5 % (2-11); NEUTROPHILS 73.8 % (40-80); PLATELET COUNT 407 10x3/uL (130-400); RBC 3.47 10x6/uL (4.00-5.40); RDW 14.2 % (11.5-14.5); WBC 9.3 10x3/uL (4.8-10.8)
[2018-06-13 06:29] LABS: CALC OSMOLALITY 281 mosm/kg (275-300); CALCIUM 8.6 mg/dL (8.5-10.1); CARBON DIOXIDE 30.5 mmol/L (21.0-32.0); CHLORIDE - SERUM 105 mmol/L (98-107); CREATININE - SERUM 0.6 mg/dL (0.6-1.3); GLUCOSE 120 mg/dL (74-106); POTASSIUM - SERUM 3.4 mmol/L (3.5-5.1); SODIUM 140 mmol/L (136-145); UREA NITROGEN 17 mg/dL (7-18); eGFR NON AFRICAN AMERICAN > 90 mL/min (90-120)
[2018-06-13 08:00] VITALS: BP 123/61
[2018-06-13 19:00] VITALS: BP 140/65
[2018-06-14 19:00] VITALS: BP 119/59
[2018-06-15 07:20] LABS: BASOPHILS 0.2 % (0-2); HEMATOCRIT 28.1 % (36.0-48.0); HEMOGLOBIN 8.9 g/dL (12-16); IMMATURE GRANULOCYTES 0.3 % (0-5); LYMPHOCYTES 7.2 % (15-50); MCH 29.3 pg (26.0-34.0); MCHC 31.7 g/dL (31.0-37.0); MCV 92.4 fL (80.0-100.0); MEAN PLATELET VOLUME 9.6 fL (7.4-10.4); NEUTROPHILS 81.3 % (40-80); RBC 3.04 10x6/uL (4.00-5.40); RDW 13.9 % (11.5-14.5); WBC 11.7 10x3/uL (4.8-10.8)
[2018-06-15 07:23] LABS: PLATELET COUNT 268 10x3/uL (130-400)
[2018-06-15 07:38] LABS: CALC OSMOLALITY 284 mosm/kg (275-300); CALCIUM 8.7 mg/dL (8.5-10.1); CARBON DIOXIDE 30.4 mmol/L (21.0-32.0); CHLORIDE - SERUM 102 mmol/L (98-107); CREATININE - SERUM 0.7 mg/dL (0.6-1.3); GLUCOSE 125 mg/dL (74-106); POTASSIUM - SERUM 4.2 mmol/L (3.5-5.1); SODIUM 139 mmol/L (136-145); UREA NITROGEN 29 mg/dL (7-18); eGFR NON AFRICAN AMERICAN 85 mL/min (90-120)
[2018-06-16 08:00] VITALS: BP 124/47
[2018-06-16 19:00] VITALS: BP 128/57
[2018-06-17 07:21] LABS: HEMATOCRIT 27.9 % (36.0-48.0); HEMOGLOBIN 9.1 g/dL (12-16); LYMPHOCYTES 13.8 % (15-50); MCH 29.6 pg (26.0-34.0); MCHC 32.6 g/dL (31.0-37.0); MCV 90.9 fL (80.0-100.0); MEAN PLATELET VOLUME 9.5 fL (7.4-10.4); NEUTROPHILS 74.2 % (40-80); PLATELET COUNT 257 10x3/uL (130-400); RBC 3.07 10x6/uL (4.00-5.40); RDW 13.1 % (11.5-14.5)
[2018-06-17 07:22] LABS: CALC OSMOLALITY 278 mosm/kg (275-300); CALCIUM 8.8 mg/dL (8.5-10.1); CARBON DIOXIDE 31.7 mmol/L (21.0-32.0); CHLORIDE - SERUM 102 mmol/L (98-107); CREATININE - SERUM 0.7 mg/dL (0.6-1.3); GLUCOSE 99 mg/dL (74-106); SODIUM 138 mmol/L (136-145); WBC 8.5 10x3/uL (4.8-10.8); eGFR NON AFRICAN AMERICAN 85 mL/min (90-120)
[2018-06-17 07:24] LABS: UREA NITROGEN 20 mg/dL (7-18)
[2018-06-17 08:00] VITALS: BP 127/64
[2018-06-17 20:19] VITALS: BP 114/51
[2018-06-17 21:41] VITALS: BP 114/51
[2018-06-18 08:03] VITALS: BP 122/62
[2018-06-18 21:17] VITALS: BP 119/58
[2018-06-19 11:18] VITALS: BP 157/61
[2018-06-19 22:15] VITALS: BP 138/64
[2018-06-19 23:31] LABS: APPEARANCE CLOUDY (CLEAR); BILIRUBIN NEGATIVE (NEGATIVE); COLOR YELLOW (YELLOW); GLUCOSE NEGATIVE (NEGATIVE); KETONE NEGATIVE (NEGATIVE); NITRITE NEGATIVE (NEGATIVE); PROTEIN NEGATIVE (NEGATIVE); SPECIFIC GRAVITY 1.015 (1.005-1.020); UROBILINOGEN NORMAL (NORMAL)
[2018-06-19 23:33] LABS: BACTERIA MANY /hpf (NONE SEEN); EPITHELIAL CELLS 0-5 /hpf (0-5); RED CELLS - URINE 0-5 /hpf (0-5)
[2018-06-20 06:15] LABS: BASOPHILS 0.2 % (0-2); EOSINOPHILS 1.7 % (0-7); HEMATOCRIT 26.3 % (36.0-48.0); HEMOGLOBIN 8.4 g/dL (12-16); IMMATURE GRANULOCYTES 0.5 % (0-5); LYMPHOCYTES 14.9 % (15-50); MCH 28.9 pg (26.0-34.0); MCHC 31.9 g/dL (31.0-37.0); MCV 90.4 fL (80.0-100.0); MEAN PLATELET VOLUME 9.9 fL (7.4-10.4); MONOCYTES 17.4 % (2-11); NEUTROPHILS 65.3 % (40-80); PLATELET COUNT 233 10x3/uL (130-400); RBC 2.91 10x6/uL (4.00-5.40); RDW 13.4 % (11.5-14.5); WBC 6.1 10x3/uL (4.8-10.8)
[2018-06-20 06:37] LABS: CALC OSMOLALITY 280 mosm/kg (275-300); CALCIUM 8.2 mg/dL (8.5-10.1); CARBON DIOXIDE 28.9 mmol/L (21.0-32.0); CHLORIDE - SERUM 106 mmol/L (98-107); CREATININE - SERUM 0.6 mg/dL (0.6-1.3); GLUCOSE 91 mg/dL (74-106); POTASSIUM - SERUM 3.3 mmol/L (3.5-5.1); SODIUM 141 mmol/L (136-145); UREA NITROGEN 12 mg/dL (7-18); eGFR NON AFRICAN AMERICAN > 90 mL/min (90-120)
[2018-06-20 07:46] VITALS: BP 128/62
[2018-06-20 19:00] VITALS: BP 116/49
[2018-06-21 07:01] LABS: BASOPHILS 0.1 % (0-2); EOSINOPHILS 1.7 % (0-7); HEMATOCRIT 27.6 % (36.0-48.0); HEMOGLOBIN 8.8 g/dL (12-16); IMMATURE GRANULOCYTES 0.3 % (0-5); MCH 28.9 pg (26.0-34.0); MCHC 31.9 g/dL (31.0-37.0); MCV 90.8 fL (80.0-100.0); MEAN PLATELET VOLUME 9.7 fL (7.4-10.4); MONOCYTES 13.5 % (2-11); NEUTROPHILS 74.4 % (40-80); PLATELET COUNT 210 10x3/uL (130-400); RBC 3.04 10x6/uL (4.00-5.40); RDW 13.4 % (11.5-14.5)
[2018-06-21 07:16] LABS: WBC 8.8 10x3/uL (4.8-10.8)
[2018-06-21 07:59] VITALS: BP 147/54
[2018-06-21] MEDS ORDERED: Ditropan XL PO (08:30)
== END 2018-06-21 11:06 | DRG 560 ==
LOC: D.REHAB 15:22
PROVIDERS: Emergency Medicine; Internal Medicine Gastroenterology
DX: S72.492D Other fracture of lower end of left femur, subsequent encounter for closed fracture with routine healing (principal); D62 Acute posthemorrhagic anemia; M96.89 Other intraoperative and postprocedural complications and disorders of the musculoskeletal system; K22.10 Ulcer of esophagus without bleeding; W19.XXXD Unspecified fall, subsequent encounter; M81.0 Age-related osteoporosis without current pathological fracture; K29.80 Duodenitis without bleeding; K29.60 Other gastritis without bleeding

== ENCOUNTER 2018-07-25 19:41 | Inpatient (IN) | payer MEDICARE, OTHER ==
[~2018-07-25] VITALS: Ht 167.6 cm; Wt 55.0 kg
--- NOTE | ~2018-07-25 | MORECARE ---
CASE MANAGEMENT DISCHARGE SUMMARY PATIENT: MERVIN DUBON UNIT: [id number] ADM DATE: 07/25/18 AGE: 77 : 38 SEX: F ROOM/BED: D.2305 AUTHOR: JAMIE RODRIGUEZ PHYSICIAN: REFERRING PHYSICIAN: ARNULFO SPAIN MD DATE OF SERVICE: 07/27/18 Discharge Plan Patient Name: MERVIN DUBON [facility] [facility] 1940 Planned Disposition: Inpatient Rehab Facility Anticipated Discharge Date: Discharge Date: Expected LOS: Initial Reviewer: [email or web address] Initial Review Date: 07/27/2018 Generated: 07/27/18 5:00 pm DCPIA - Discharge Planning Initial Assessment Updated by [email or web address]: Gia Kraus on 07/27/18 3:59 pm * Is the patient Alert and Oriented? Yes * How many steps to enter\exit or inside your home? * PCP Unknown physician @ [facility] * [facility] [place] [facility] * Preadmission Environment Senior Care Facility * Facility Name [facility] * ADLs Partial Dependent * Partial ADLs (Assistance needed) Ambulation Bathing Dressing * Equipment Walker * Other Equipment Cane , walk in Tub * List name and contact numbers for known caregivers / representatives who currently or will assist patient after discharge: Fortunato lazo [phone] Cha * Verbal permission to speak to the caregivers and representatives has been obtained from the patient. N/A * Community resources currently utilized Private Duty Care * Please name any agencies selected above. In home care with Cha * Additional services required to return to the preadmission environment? No * Can the patient safely return to the preadmission environment? Yes * Has this patient been hospitalized within the prior 30 days at any hospital? No Last DP export: 07/27/18 2:51 p Patient Name: MERVIN DUBON Page 27726 at 1600 All edits/amendments must be made on the electronic document DICTATION DATE: 07/27/181558 OUTSIDE FOOD SERVER: AYALA 07/27/18 155 RPT#: [id number] DC DATE: STATUS: ADM IN [facility] [address] [place] [address] END OF REPORT
--- NOTE | ~2018-07-25 | MORECARE ---
CASE MANAGEMENT DISCHARGE SUMMARY PATIENT: MERVIN DUBON UNIT: [id number] ADM DATE: 07/25/18 AGE: 77 : 38 SEX: F ROOM/BED: D.2305 AUTHOR: MICHAEL,DOC PHYSICIAN: REFERRING PHYSICIAN: ARNULFO SPAIN MD DATE OF SERVICE: 07/27/18 Discharge Plan Patient Name: MERVIN DUBON Facility: [facility]:[place] : 1940 Planned Disposition: Inpatient Rehab Facility Anticipated Discharge Date: Discharge Date: Expected LOS: Initial Reviewer: [email or web address] Initial Review Date: 07/27/2018 Generated: 07/27/18 5:11 pm Comments DCP- Discharge Planning Updated by [email or web address]: Gia Kraus on 07/27/18 3:[address] Patient Name: MERVIN DUBON Admission Status: ER Accout number: [id number] Admission Date: 07-25-2018 : 1940 Admission Diagnosis:ACUTE POSTHEMORRHAGIC ANEMIA Attending: ARNULFO SPAIN Current LOS: 2 Anticipated DC Date: Planned Disposition: Inpatient Rehab Facility Primary Insurance: MEDICARE A & B Discharge Planning Comments: CM met with patient at bedside. Patient is upset at this time states no one is informing her of anything that is going on. She knows she is suppose to have a test at 4pm today. (EGD) Patient states that she was in Rehab at [facility] in [facility] prior to this admission. Patient was in Hospital 06/09 for femur fracture and GI bleed the to INPT Rehab. Patient states she has a behavioral health care manager Cha? that lives with her but she doesn't know her contact information. Patient plans on going to inpatient rehab upon discharge from acute care. Patient denies any current discharge needs at this time. CM will continue to follow and assist with discharge planning / needs. Animal Researcher: Gia Kraus DCPIA - Discharge Planning Initial Assessment Updated by [email or web address]: Gia Kraus on 07/27/18 3:59 pm * Is the patient Alert and Oriented? Yes * How many steps to enter\exit or inside your home? * PCP Unknown physician @ [facility] * [facility] [place] [facility] * Preadmission Environment Group Home Facility * Facility Name [facility] * ADLs Partial Dependent * Partial ADLs (Assistance needed) Ambulation Bathing Dressing * Equipment Walker * Other Equipment Cane , walk in Tub * List name and contact numbers for known caregivers / representatives who currently or will assist patient after discharge: Fortunato lazo [phone] Cha * Verbal permission to speak to the caregivers and representatives has been obtained from the patient. N/A * Community resources currently utilized Private Duty Care * Please name any agencies selected above. In home care with Cha * Additional services required to return to the preadmission environment? No * Can the patient safely return to the preadmission environment? Yes * Has this patient been hospitalized within the prior 30 days at any hospital? No Last DP export: 07/27/18 3:00 p Patient Name: MERVIN DUBON Page 72050 at 1611 All edits/amendments must be made on the electronic document DICTATION DATE: 07/27/181610 AIRPLANE PILOT HELPER: AYALA 07/27/18 161 RPT#: [id number] DC DATE: STATUS: ADM IN [facility] [address] [place] [address] END OF REPORT
--- NOTE | ~2018-07-25 | MORECARE ---
CASE MANAGEMENT DISCHARGE SUMMARY PATIENT: MERVIN DUBON UNIT: [id number] ADM DATE: 07/25/18 AGE: 77 : 38 SEX: F ROOM/BED: D.2230 AUTHOR: MICHAEL,DOC PHYSICIAN: REFERRING PHYSICIAN: ARNULFO SPAIN MD DATE OF SERVICE: 07/29/18 Discharge Plan Patient Name: MERVIN DUBON Facility: [facility]:[place] : 1940 Planned Disposition: Inpatient Rehab Facility Anticipated Discharge Date: Discharge Date: Expected LOS: Initial Reviewer: [email or web address] Initial Review Date: 07/27/2018 Generated: 07/29/18 11:36 am Comments DCP- Discharge Planning Updated by [email or web address]: Joann Garza on 07/29/18 9:[address] Received order for discharge. Osiris from [facility] has called with a pick pulling machine tender time of 11:30. Cloth Finisher and Primary nurse (Mel) have been informed. IMM explained to patient and signed, copy given. Patient does not want me to call family to notify of discharge. I informed primary nurse that patient is on bedpan and urine needed to be sent to lab for uncollected U/A. She is discharging to [facility] to a skilled (Medicare) bed. CM will continue to follow and assist with discharge planning/needs. DCP- Discharge Planning Updated by [id number]: Joann Garza on 07/28/18 2:[address] Spoke with Osiris at [facility], she states they will accept patient back when ready for discharge. Clinical faxed to [facility]. CM will continue to follow and assist with discharge planning/needs. DCP- Discharge Planning Updated by [email or web address]: Joann Garza on 07/28/18 11:[address] Spoke with patient regarding discharge planning, she is alone in the room. She states she would like to go back to [facility] when discharged from here. States she would rather [facility] than inpatient rehab at this time. I called and left a message with Osiris at [facility] and my call back number. CM will continue to follow and assist with discharge planning/needs. DCP- Discharge Planning Updated by [email or web address]: Gia Kraus on 07/27/18 3:[address] Patient Name: MERVIN DUBON Admission Status: ER Accout number: [id number] Admission Date: 07-25-2018 : 1940 Admission Diagnosis:ACUTE POSTHEMORRHAGIC ANEMIA Attending: ARNULFO SPAIN Current LOS: 2 Anticipated DC Date: Planned Disposition: Inpatient Rehab Facility Primary Insurance: MEDICARE A & B Discharge Planning Comments: CM met with patient at bedside. Patient is upset at this time states no one is informing her of anything that is going on. She knows she is suppose to have a test at 4pm today. (EGD) Patient states that she was in Rehab at [facility] in [facility] prior to this admission. Patient was in Hospital 06/09 for femur fracture and GI bleed the to INPT Rehab. Patient states she has a healthcare market consultant Cha? that lives with her but she doesn't know her contact information. Patient plans on going to inpatient rehab upon discharge from acute care. Patient denies any current discharge needs at this time. CM will continue to follow and assist with discharge planning / needs. Saturation Equipment Operator: Gia BELTRAN - Discharge Planning Initial Assessment Updated by [email or web address]: Gia Kraus on 07/27/18 3:59 pm * Is the patient Alert and Oriented? Yes * How many steps to enter\exit or inside your home? * PCP Unknown physician @ [facility] * [facility] [place] [facility] * Preadmission Environment Alf Facility * Facility Name [facility] * ADLs Partial Dependent * Partial ADLs (Assistance needed) Ambulation Bathing Dressing * Equipment Walker * Other Equipment Cane , walk in Tub * List name and contact numbers for known caregivers / representatives who currently or will assist patient after discharge: Fortunato lazo [phone] Cha * Verbal permission to speak to the caregivers and representatives has been obtained from the patient. N/A * Community resources currently utilized Private Duty Care * Please name any agencies selected above. In home care with Cha * Additional services required to return to the preadmission environment? No * Can the patient safely return to the preadmission environment? Yes * Has this patient been hospitalized within the prior 30 days at any hospital? No Coverage Notice Reviewer: [id number] Yary Garza Notice Issued Date-Time: 07/29/2018 10:29 Notice Type: IM Discharge Notice Notice Delivered To: Patient Relationship to Patient: Self Operations Supervisor Name: Delivery Method: HAND - Hand Delivered Louis[place] Days: Prior Verbal Notification: Recipient Understood Notice: Yes Recipient Signature: Yes Med Rec Note Co-signed by Attending: Coverage Notice Comment: IMM explained, signed, copy given, original placed in MR Last DP export: 07/28/18 2:09 p Patient Name: MERVIN DUBON Page 69811 at 1036 All edits/amendments must be made on the electronic document DICTATION DATE: 07/29/18 1035 MACHINERY MOVER: AYALA 07/29/18 1035 RPT#: [id number] DC DATE: STATUS: ADM IN [facility] [address] [place] [address] END OF REPORT
--- NOTE | ~2018-07-25 | MORECARE ---
CASE MANAGEMENT DISCHARGE SUMMARY PATIENT: MERVIN DUBON UNIT: [id number] ADM DATE: 07/25/18 AGE: 77 : 38 SEX: F ROOM/BED: D.2230 AUTHOR: JAMIE RODRIGUEZ PHYSICIAN: REFERRING PHYSICIAN: ARNULFO SPAIN MD DATE OF SERVICE: 07/28/18 Discharge Plan Patient Name: MERVIN DUBON Facility: [facility]:[place] : 1940 Planned Disposition: Inpatient Rehab Facility Anticipated Discharge Date: Discharge Date: Expected LOS: Initial Reviewer: [email or web address] Initial Review Date: 07/27/2018 Generated: 07/28/18 4:09 pm Comments DCP- Discharge Planning Updated by [email or web address]: Joann Garza on 07/28/18 2:[address] Spoke with Osiris at [facility], she states they will accept patient back when ready for discharge. Clinical faxed to [facility]. CM will continue to follow and assist with discharge planning/needs. DCP- Discharge Planning Updated by [email or web address]: Joann Garza on 07/28/18 11:[address] Spoke with patient regarding discharge planning, she is alone in the room. She states she would like to go back to [facility] when discharged from here. States she would rather [facility] than inpatient rehab at this time. I called and left a message with Osiris at [facility] and my call back number. CM will continue to follow and assist with discharge planning/needs. DCP- Discharge Planning Updated by [email or web address]: Gia Kraus on 07/27/18 3:[address] Patient Name: MERVIN DUBON Admission Status: ER Accout number: [id number] Admission Date: 07-25-2018 : 1940 Admission Diagnosis:ACUTE POSTHEMORRHAGIC ANEMIA Attending: ARNULFO SPAIN Current LOS: 2 Anticipated DC Date: Planned Disposition: Inpatient Rehab Facility Primary Insurance: MEDICARE A & B Discharge Planning Comments: CM met with patient at bedside. Patient is upset at this time states no one is informing her of anything that is going on. She knows she is suppose to have a test at 4pm today. (EGD) Patient states that she was in Rehab at [facility] in [facility] prior to this admission. Patient was in Hospital 06/09 for femur fracture and GI bleed the to INPT Rehab. Patient states she has a home care scheduler Cha? that lives with her but she doesn't know her contact information. Patient plans on going to inpatient rehab upon discharge from acute care. Patient denies any current discharge needs at this time. CM will continue to follow and assist with discharge planning / needs. Patient Services Coordinator: Gia BELTRAN - Discharge Planning Initial Assessment Updated by [email or web address]: Gia Kraus on 07/27/18 3:59 pm * Is the patient Alert and Oriented? Yes * How many steps to enter\exit or inside your home? * PCP Unknown physician @ [facility] * [facility] [place] [facility] * Preadmission Environment Retirement Facility * Facility Name [facility] * ADLs Partial Dependent * Partial ADLs (Assistance needed) Ambulation Bathing Dressing * Equipment Walker * Other Equipment Cane , walk in Tub * List name and contact numbers for known caregivers / representatives who currently or will assist patient after discharge: Fortunato lazo [phone] Cha * Verbal permission to speak to the caregivers and representatives has been obtained from the patient. N/A * Community resources currently utilized Private Duty Care * Please name any agencies selected above. In home care with Cha * Additional services required to return to the preadmission environment? No * Can the patient safely return to the preadmission environment? Yes * Has this patient been hospitalized within the prior 30 days at any hospital? No External Providers External Provider: [facility] Next Contact Date: Service Request Date: Service Type: Resolution: Reviewer: Comments: Last DP export: 07/28/18 11:44 a Patient Name: MERVIN DUBON Page 64296 at 1509 All edits/amendments must be made on the electronic document DICTATION DATE: 07/28/181507 AUTOMOTIVE QUALITY ENGINEER: AYALA 07/28/18 150 RPT#: [id number] DC DATE: STATUS: ADM IN [address] [place] [address] END OF REPORT
--- NOTE | ~2018-07-25 | MORECARE ---
CASE MANAGEMENT DISCHARGE SUMMARY PATIENT: MERVIN DUBON UNIT: [id number] ADM DATE: 07/25/18 AGE: 77 : 38 SEX: F ROOM/BED: D.2230 AUTHOR: MICHAELDOC PHYSICIAN: REFERRING PHYSICIAN: ARNULFO SPAIN MD DATE OF SERVICE: 07/28/18 Discharge Plan Patient Name: MERVIN DUBON Facility: [facility]:[place] : 1940 Planned Disposition: Inpatient Rehab Facility Anticipated Discharge Date: Discharge Date: Expected LOS: Initial Reviewer: [email or web address] Initial Review Date: 07/27/2018 Generated: 07/28/18 1:44 pm Comments DCP- Discharge Planning Updated by [email or web address]: Joann Garza on 07/28/18 11:[address] Spoke with patient regarding discharge planning, she is alone in the room. She states she would like to go back to [facility] when discharged from here. States she would rather [facility] than inpatient rehab at this time. I called and left a message with Osiris at [facility] and my call back number. CM will continue to follow and assist with discharge planning/needs. DCP- Discharge Planning Updated by [email or web address]: Gia Kraus on 07/27/18 3:[address] Patient Name: MERVIN DUBON Admission Status: ER Accout number: [id number] Admission Date: 07-25-2018 : 1940 Admission Diagnosis:ACUTE POSTHEMORRHAGIC ANEMIA Attending: ARNULFO SPAIN Current LOS: 2 Anticipated DC Date: Planned Disposition: Inpatient Rehab Facility Primary Insurance: MEDICARE A & B Discharge Planning Comments: CM met with patient at bedside. Patient is upset at this time states no one is informing her of anything that is going on. She knows she is suppose to have a test at 4pm today. (EGD) Patient states that she was in Rehab at [facility] in [facility] prior to this admission. Patient was in Hospital 06/09 for femur fracture and GI bleed the to INPT Rehab. Patient states she has a field care manager Cha? that lives with her but she doesn't know her contact information. Patient plans on going to inpatient rehab upon discharge from acute care. Patient denies any current discharge needs at this time. CM will continue to follow and assist with discharge planning / needs. Data Visualization Developer: Gia BELTRAN - Discharge Planning Initial Assessment Updated by [email or web address]: Gia Kraus on 07/27/18 3:59 pm * Is the patient Alert and Oriented? Yes * How many steps to enter\exit or inside your home? * PCP Unknown physician @ [facility] * [facility] * Preadmission Environment Snf Facility * Facility Name [facility] * ADLs Partial Dependent * Partial ADLs (Assistance needed) Ambulation Bathing Dressing * Equipment Walker * Other Equipment Cane , walk in Tub * List name and contact numbers for known caregivers / representatives who currently or will assist patient after discharge: Fortunato lazo [phone] Cha * Verbal permission to speak to the caregivers and representatives has been obtained from the patient. N/A * Community resources currently utilized Private Duty Care * Please name any agencies selected above. In home care with Cha * Additional services required to return to the preadmission environment? No * Can the patient safely return to the preadmission environment? Yes * Has this patient been hospitalized within the prior 30 days at any hospital? No Last DP export: 07/27/18 3:11 p Patient Name: MERVIN DUBON Page 10142 at 1244 All edits/amendments must be made on the electronic document DICTATION DATE: 07/28/18 1243 SENIOR FOREMAN: AYALA 07/28/18 1243 RPT#: [id number] DC DATE: STATUS: ADM IN [facility] [address] [place] [address] END OF REPORT
--- NOTE | ~2018-07-25 | MORECARE ---
CASE MANAGEMENT DISCHARGE SUMMARY PATIENT: MERVIN DUBON UNIT: [id number] ADM DATE: 07/25/18 AGE: 77 : 38 SEX: F ROOM/BED: D.2305 AUTHOR: JAMIE RODRIGUEZ PHYSICIAN: REFERRING PHYSICIAN: ARNULFO SPAIN MD DATE OF SERVICE: 07/27/18 Discharge Plan Patient Name: MERVIN DUBON [facility] [facility] 1940 Planned Disposition: Inpatient Rehab Facility Anticipated Discharge Date: Discharge Date: Expected LOS: Initial Reviewer: [email or web address] Initial Review Date: 07/27/2018 Generated: 07/27/18 4:51 pm Patient Name: MERVIN DUBON Page [id number] at 1552 All edits/amendments must be made on the electronic document DICTATION DATE: 07/27/18 155 DIRECTOR MEDICAID: AYALA 07/27/18 155 RPT#: [id number] DC DATE: STATUS: ADM IN [facility] [address] [place] [address] END OF REPORT
[~2018-07-25 19:41] MED LIST changes: +Ditropan XL PO
[2018-07-25] MEDS ORDERED: ACETAMINOPHEN325 MG PO (19:56)
[2018-07-25] MEDS ORDERED: CALCIUM 600 +1 EAC3 PO (19:56)
[2018-07-25] MEDS ORDERED: MELATONIN 3 MG1 TAB PO (19:56)
[2018-07-25] MEDS ORDERED: MIRALAX17 GM PO (19:57)
[2018-07-25] MEDS ORDERED: PHENAZOPYRIDIN100 MG PO (19:57)
[2018-07-25] MEDS ORDERED: REMERON15 MG PO (19:57)
[2018-07-25] MEDS ORDERED: SENNA LAXATIVE8.6 MG PO (19:58)
[2018-07-25] MEDS ORDERED: ZOFRAN4 MG PO (19:58)
[2018-07-25 20:00] VITALS: BP 104/49
[2018-07-25 20:22] LABS: ALBUMIN 2.2 g/dL (3.4-5.0); BILIRUBIN - TOTAL 0.2 mg/dL (0.2-1.3); CALCIUM 8.6 mg/dL (8.5-10.1); CARBON DIOXIDE 29.3 mmol/L (21.0-32.0); CREATININE - SERUM 0.9 mg/dL (0.6-1.3); POTASSIUM - SERUM 4.3 mmol/L (3.5-5.1); PROTEIN - SERUM 6.3 g/dL (6.4-8.2)
[2018-07-25 20:24] LABS: BASOPHILS 0.5 % (0-2); EOSINOPHILS 2.5 % (0-7); HEMATOCRIT 23.1 % (36.0-48.0); LYMPHOCYTES 27.6 % (15-50); MCH 25.1 pg (26.0-34.0); MCHC 29.4 g/dL (31.0-37.0); MCV 85.2 fL (80.0-100.0); MEAN PLATELET VOLUME 8.9 fL (7.4-10.4); MONOCYTES 13.1 % (2-11); NEUTROPHILS 56.3 % (40-80); RBC 2.71 10x6/uL (4.00-5.40); WBC 5.9 10x3/uL (4.8-10.8)
[2018-07-25 20:29] LABS: APTT 23.8 SECONDS (22.8-39.4); INR 1.16 (0.85-1.17); PROTIME 14.3 SECONDS (11.6-15.0)
[2018-07-25 20:38] LABS: HEMOGLOBIN 6.8 g/dL (12-16); PLATELET COUNT 273 10x3/uL (130-400)
[2018-07-25 21:00] VITALS: BP 110/45
[2018-07-25 22:00] VITALS: BP 108/47
[2018-07-25 23:00] VITALS: BP 116/58
[2018-07-26] VITALS (23 sets, daily range): BP systolic 105–126; BP diastolic 49–64; Ht 167.6 cm; Wt 55.0 kg
[2018-07-26 10:24] LABS: BASOPHILS 0.5 % (0-2); EOSINOPHILS 2.9 % (0-7); IMMATURE GRANULOCYTES 0.2 % (0-5); LYMPHOCYTES 24.8 % (15-50); MCH 26.5 pg (26.0-34.0); MCHC 31.9 g/dL (31.0-37.0); NEUTROPHILS 56.6 % (40-80); PLATELET COUNT 241 10x3/uL (130-400); RDW 14.6 % (11.5-14.5); WBC 6.5 10x3/uL (4.8-10.8)
[2018-07-26 10:27] LABS: RBC 3.93 10x6/uL (4.00-5.40)
[2018-07-26 10:31] LABS: HEMATOCRIT 32.6 % (36.0-48.0); HEMOGLOBIN 10.4 g/dL (12-16)
[2018-07-26 10:46] LABS: ALBUMIN 2.2 g/dL (3.4-5.0); ANION GAP 10.2 mmol/L (8-16); BILIRUBIN - TOTAL 0.6 mg/dL (0.2-1.3); CARBON DIOXIDE 27.9 mmol/L (21.0-32.0); CREATININE - SERUM 0.8 mg/dL (0.6-1.3); POTASSIUM - SERUM 4.1 mmol/L (3.5-5.1); PROTEIN - SERUM 6.5 g/dL (6.4-8.2)
[2018-07-26 11:01] LABS: % SATURATION 6 % (15-55); IRON 16 ug/dl (35-150); TOTAL IRON BIND CAPACITY 250 ug/dl (260-445); UNSAT IRON BIND CAPACITY 234 ug/dl (150-375)
[2018-07-26 16:38] LABS: HEMATOCRIT 30.1 % (36.0-48.0); HEMOGLOBIN 9.7 g/dL (12-16)
[2018-07-26 22:34] LABS: HEMATOCRIT 31.7 % (36.0-48.0); HEMOGLOBIN 10.1 g/dL (12-16)
[2018-07-27] VITALS (21 sets, daily range): BP systolic 109–138; BP diastolic 47–70
[2018-07-27 04:17] LABS: HEMATOCRIT 31.4 % (36.0-48.0); HEMOGLOBIN 9.9 g/dL (12-16)
[2018-07-28 01:09] VITALS: BP 145/55
[2018-07-28 04:49] VITALS: BP 126/60
[2018-07-28 04:57] LABS: BASOPHILS 0.4 % (0-2); EOSINOPHILS 3.6 % (0-7); HEMATOCRIT 31.9 % (36.0-48.0); HEMOGLOBIN 10.2 g/dL (12-16); IMMATURE GRANULOCYTES 0.2 % (0-5); LYMPHOCYTES 20.2 % (15-50); MCH 26.8 pg (26.0-34.0); MCV 83.9 fL (80.0-100.0); MEAN PLATELET VOLUME 9.1 fL (7.4-10.4); MONOCYTES 17.9 % (2-11); NEUTROPHILS 57.7 % (40-80); PLATELET COUNT 236 10x3/uL (130-400); RDW 14.9 % (11.5-14.5); WBC 5.6 10x3/uL (4.8-10.8)
[2018-07-28 05:13] LABS: CALCIUM 7.9 mg/dL (8.5-10.1); CARBON DIOXIDE 27.9 mmol/L (21.0-32.0); CHLORIDE - SERUM 108 mmol/L (98-107); CREATININE - SERUM 0.7 mg/dL (0.6-1.3); GLUCOSE 91 mg/dL (74-106); SODIUM 144 mmol/L (136-145); eGFR NON AFRICAN AMERICAN 85 mL/min (90-120)
[2018-07-28 05:26] LABS: CALC OSMOLALITY 285 mosm/kg (275-300); POTASSIUM - SERUM 3.4 mmol/L (3.5-5.1); UREA NITROGEN 10 mg/dL (7-18)
[2018-07-28 08:33] VITALS: BP 105/46
[2018-07-28 20:31] VITALS: BP 112/54
[2018-07-29 00:50] VITALS: BP 132/64
[2018-07-29 04:48] LABS: BASOPHILS 0.4 % (0-2); EOSINOPHILS 3.9 % (0-7); HEMATOCRIT 33.7 % (36.0-48.0); HEMOGLOBIN 10.5 g/dL (12-16); IMMATURE GRANULOCYTES 0.2 % (0-5); LYMPHOCYTES 25.2 % (15-50); MCH 26.1 pg (26.0-34.0); MCHC 31.2 g/dL (31.0-37.0); MCV 83.6 fL (80.0-100.0); MEAN PLATELET VOLUME 8.4 fL (7.4-10.4); MONOCYTES 16.8 % (2-11); NEUTROPHILS 53.5 % (40-80); PLATELET COUNT 213 10x3/uL (130-400); RBC 4.03 10x6/uL (4.00-5.40); RDW 14.6 % (11.5-14.5); WBC 5.6 10x3/uL (4.8-10.8)
[2018-07-29 04:54] LABS: CALC OSMOLALITY 276 mosm/kg (275-300); CALCIUM 8.2 mg/dL (8.5-10.1); CARBON DIOXIDE 27.3 mmol/L (21.0-32.0); CHLORIDE - SERUM 106 mmol/L (98-107); CREATININE - SERUM 0.6 mg/dL (0.6-1.3); GLUCOSE 100 mg/dL (74-106); SODIUM 139 mmol/L (136-145); UREA NITROGEN 11 mg/dL (7-18); eGFR NON AFRICAN AMERICAN > 90 mL/min (90-120)
[2018-07-29 05:03] VITALS: BP 137/66
[2018-07-29] MEDS ORDERED: PROTONIX40 MG PO (08:56)
[2018-07-29 08:57] VITALS: BP 126/63
== END 2018-07-29 11:54 | DRG 381 ==
LOC: D.ER 19:41 → D.CVICU 21:31 → D.ICU 21:31 → D.MS 21:31 → D.EDHOLD 21:46 → D.ICU 07-26 00:04 → D.MS 07-27 19:39
PROVIDERS: Family Medicine; Internal Medicine Gastroenterology; Internal Medicine Nephrology
PROC: 0DB28ZX Excision of Middle Esophagus, Via Natural or Artificial Opening Endoscopic, Diagnostic (ICD-10-PCS; principal; 2018-07-27 16:00)
DX: K22.11 Ulcer of esophagus with bleeding (principal); D62 Acute posthemorrhagic anemia; E44.0 Moderate protein-calorie malnutrition; F44.4 Conversion disorder with motor symptom or deficit; Z68.21 Body mass index [BMI] 21.0-21.9, adult; K21.9 Gastro-esophageal reflux disease without esophagitis